=== PATIENT | female | born 1970 | race Caucasian/White ===

== ENCOUNTER 2019-09-17 15:50 | Outpatient (CLI) | payer OTHER, SELFPAY ==
--- NOTE | ~2019-09-17 | MM_ITS ---
EXAMINATION: MM screening ashvin BI w ashli HISTORY: Screening mammogram TECHNIQUE: Craniocaudal and mediolateral oblique 3-D tomosynthesis images were obtained and synthetic 2-D images were generated. CAD analysis was submitted and interpreted. COMPARISON: No prior mammogram is available for comparison at this institution. BREAST PARENCHYMAL COMPOSITION: The breasts are almost entirely fatty. FINDINGS: There is no evidence of suspicious mass, calcification, or architectural distortion to sugg est malignancy in either breast. There has been no suspicious interval change. IMPRESSION: 1. No mammographic evidence of malignancy. 2. Recommend routine screening mammography in one year. BI-RADS Category 1: Negative Reviewed, dictated and finalized at location A.
== END 2019-09-17 15:51 | disposition home or self-care (01) ==
LOC: ANHIMG 15:54
PROVIDERS: PCP Physician Assistant; Visit Provider Obstetrics & Gynecology
DX: Z12.31 Encounter for screening mammogram for malignant neoplasm of breast (principal)
CPT/HCPCS: 77063; 77067

== ENCOUNTER 2020-01-16 07:13 | Outpatient (CLI) | payer OTHER, SELFPAY ==
[2020-01-16 07:24] LABS: Hematocrit 41.3 % (35.0-49.0); Hemoglobin 13.9 g/dL (12.0-15.0); Mean Corpuscular HGB Conc 33.7 g/dL (32.0-36.0); Mean Corpuscular Hemoglobin 31.6 pg (27.0-31.0); Mean Corpuscular Volume 93.9 fL (78.0-102.0); Mean Platelet Volume 10.8 fl (9.2-11.8); Platelet Count Result 226 K/mm3 (150-420); Red Cell Distribution Width 12.4 % (11.6-14.4); White Blood Count 6.6 K/mm3 (4.8-10.8)
[2020-01-16 08:40] LABS: Alanine Aminotransferase 29 U/L (14-59); Albumin Level 3.9 g/dL (3.4-5.0); Alkaline Phosphatase 55 U/L (46-116); Anion Gap 11 mmol/L (8-16); Aspartate Amino Transferase 15 U/L (15-37); Bilirubin,Total 0.3 mg/dL (0.00-1.00); Blood Urea Nitrogen 11 mg/dL (7-18); Calcium 8.6 mg/dL (8.5-10.1); Carbon Dioxide 26 mmol/L (21-32); Chloride 105 mmol/L (98-108); Cholesterol 205 mg/dL (0-200); Estimated Glomerular Filt Rate > 60; Folic Acid 10.1 ng/mL (8.6->20); Glucose 91 mg/dL (70-99); HDL Direct 44 mg/dL (40-60); LDL Cholesterol Calculated 131 mg/dL (<130); Osmolality Calculated 293 mOsm/kg (285-295); Potassium 3.8 mmol/L (3.5-5.1); Sodium 142 mmol/L (136-145); Thyroid Stimulating Hormone 1.46 uIU/mL (0.36-3.74); Total Protein 6.8 g/dL (6.4-8.2); Triglycerides 151 mg/dL (0-150); Vitamin B12 371 pg/mL (193-986)
== END 2020-01-16 07:14 | disposition home or self-care (01) ==
PROVIDERS: PCP Physician Assistant; Visit Provider Physician Assistant
DX: Z00.00 Encounter for general adult medical examination without abnormal findings (principal)
CPT/HCPCS: 36415; 80053; 80061; 82607; 82746; 84443; 85027

== ENCOUNTER → 2020-04-07 10:15 | Outpatient (CLI) | payer OTHER, SELFPAY ==
[2020-04-07 19:41] LABS: SARS-CoV-2 RNA PCR Positive
== END ==
PROVIDERS: PCP Physician Assistant; Visit Provider Physician Assistant
DX: U07.1 COVID-19 (principal)
CPT/HCPCS: C9803; U0003; U0005

== ENCOUNTER 2020-08-20 08:55 | Outpatient (CLI) | payer OTHER, SELFPAY ==
[2020-08-20 09:33] LABS: Hematocrit 40.5 % (37.0-47.0); Hemoglobin 13.7 g/dL (12.0-15.0)
[2020-08-20 09:47] LABS: Albumin Level 4.5 g/dL (3.5-5.1); Estimated Glomerular Filt Rate > 60; Glucose 89 mg/dL (65-105)
[2020-08-20 09:50] LABS: Hemoglobin A1C 5.4 % (<5.7)
== END 2020-08-20 08:56 | disposition home or self-care (01) ==
LOC: ANHLAB 08:57
PROVIDERS: PCP Physician Assistant; Visit Provider Orthopaedic Surgery
DX: M16.12 Unilateral primary osteoarthritis, left hip (principal); Z01.818 Encounter for other preprocedural examination
CPT/HCPCS: 36415; 82040; 82565; 82947; 83036; 85014; 85018

== ENCOUNTER 2020-10-21 17:04 | Outpatient (CLI) | payer OTHER, SELFPAY ==
--- NOTE | ~2020-10-21 | MM_ITS ---
EXAMINATION: MM screening ashvin BI w ashli HISTORY: Screening TECHNIQUE: Craniocaudal and mediolateral oblique 3-D tomosynthesis images were obtained and synthetic 2-D images were generated. CAD analysis was submitted and interpreted. COMPARISON: Comparison to multiple prior studies sequentially, with oldest reviewed study dated 08/05. BREAST PARENCHYMAL COMPOSITION: There are scattered areas of fibroglandular density. FINDINGS: There is no evidence of suspicious mass, calcification, or architectural distortion to sugg est malignancy in either breast. There has been no suspicious interval change. IMPRESSION: 1. No mammographic evidence of malignancy. 2. Recommend routine screening mammography in one year. BI-RADS Category 1: Negative Reviewed, dictated and finalized at location A.
== END 2020-10-21 17:05 | disposition home or self-care (01) ==
LOC: ANHIMG 17:05
PROVIDERS: PCP Physician Assistant; Visit Provider Obstetrics & Gynecology
DX: Z12.31 Encounter for screening mammogram for malignant neoplasm of breast (principal)
CPT/HCPCS: 77063; 77067

== ENCOUNTER 2020-12-02 14:00 | Outpatient (CLI) | payer OTHER, SELFPAY ==
--- NOTE | 2020-12-02 14:52 | ECG_ITS ---
Measurements Intervals [place] Rate: 71 P: 49 SC: 171 QRS: -2 QRSD: 93 T: 30 QT: 405 QTc: 442 Interpretive Statements SINUS RHYTHM BASELINE ARTIFACT- II, III, AVF NORMAL ECG Electronically Signed On 12-02-2020 15:07:25 CDT by Leobardo Hazel D.O.
[2020-12-02 15:22] LABS: Basophils Absolute Auto 0.1 K/mm3 (0.0-0.1); Basophils Percent Auto 0.6 % (0.2-1.2); Eosinophils Absolute Auto 0.1 K/mm3 (0-0.3); Eosinophils Percent Auto 1.2 % (0-4.4); Hematocrit 43.5 % (37.0-47.0); Hemoglobin 14.5 g/dL (12.0-15.0); Immature Granulocyte Absolute 0.04 K/mm3 (0.00-0.031); Immature Granulocyte Percent A 0.5 % (0-0.5); Lymphocytes Absolute Auto 2.71 K/mm3 (0.9-3.2); Lymphocytes Percent Auto 32.9 % (18.3-44.2); Mean Corpuscular HGB Conc 33.3 g/dl (32-36); Mean Corpuscular Hemoglobin 31.9 pg (26-34); Mean Corpuscular Volume 95.6 fl (80-100); Mean Platelet Volume 10.9 fl (7.4-10.4); Monocytes Absolute Auto 0.6 K/mm3 (0.1-0.6); Monocytes Percent Auto 7.4 % (2.6-8.5); Neutrophils Absolute Auto 4.7 K/mm3 (1.3-6.7); Neutrophils Percent Auto 57.4 % (45.5-73.1); Platelet Count Result 258 k/mm3 (150-375); Red Blood Count 4.55 M/mm3 (4.2-5.4); Red Cell Distribution Width 12.7 % (11.5-14.5); White Blood Count 8.2 K/mm3 (4.5-10.0)
[2020-12-02 15:32] LABS: Estimated Glomerular Filt Rate > 60; Glucose 92 mg/dL (65-110)
[2020-12-02 15:52] LABS: Hemoglobin A1C 5.2 % (<5.7)
[2020-12-02 17:36] LABS: Urine Cotinine NEGATIVE
== END 2020-12-02 14:01 | disposition home or self-care (01) ==
LOC: ANHSURGERY 14:04
PROVIDERS: PCP Physician Assistant; Visit Provider Orthopaedic Surgery
DX: M16.12 Unilateral primary osteoarthritis, left hip (principal); Z01.818 Encounter for other preprocedural examination
CPT/HCPCS: 80307; 82040; 82565; 82947; 83036; 85025; 87081; 93005

== ENCOUNTER 2020-12-23 00:52 | Day surgery (SDC) | payer OTHER, SELFPAY ==
[2020-12-02 14:12] VITALS: BMI 32.3
[2020-12-02 14:52] VITALS: BP 140/83; PULSE 72; RESP 16; TEMP 37; O2SAT 100
[2020-12-23] VITALS (14 sets, daily range): BP systolic 107–142; BP diastolic 62–97; PULSE 63–95; RESP 13–20; TEMP 36.1–36.9; O2SAT 93–100
--- NOTE | ~2020-12-23 | XR_ITS ---
EXAMINATION: XR hip LT min 2V EXAM DATE: 12/23/2020 10:44 INDICATION: Postoperative left hip arthroplasty. TECHNIQUE: Portable frontal, crosstable lateral projections left hip obtained immediately following arthroplasty performed by orthopedic surgeon Oswaldo Booth MD. FINDINGS: Patient is status post left hip arthroplasty. The orthopedic hardware is in expected posi tion. There is small amount of subcutaneous gas, some soft tissue swelling. Correlate with proced ure note. IMPRESSION: Status post left hip hip arthroplasty. Reviewed, dictated and finalized at location A.
[2020-12-23] MEDS: ACETAMINOPHEN 500 MG TABLET 1000 MG PO ×4 (06:22→23:04)
[2020-12-23] MEDS: TRANEXAMIC ACID 1,000MG/ISO100 1,000 MG/100 ML BAG 200 MG IVPB (06:50)
--- NOTE | 2020-12-23 06:54 | WPDANESEPPF ---
Anes - Initial Pre Proc Eval Procedure: Operation Date: 12/23/20 07:30 Proposed Procedures p Left Total Hip Arthroplasty - Oswaldo Booth MD Date/Time: 12/23/20 06:54 Surgeon: Oswaldo Booth MD Pre Op Diagnosis: primary OA left hip Patient Data Age: 50 Gender: F Height: 1.66 m Weight: 89.2 kg Last Vital Signs Temp 36.8 C 12/23/20 06:51 Pulse 90 12/23/20 06:51 Resp 16 12/23/20 06:51 BP 138/88 12/23/20 06:51 Pulse Ox 99 12/23/20 06:51 Allergies Allergy/AdvReac Type Severity Reaction Status Date / Time No Known Allergies Allergy Verified 12/23/20 06:11 Home Medications Medication Instructions Recorded Confirmed Type fluoxetine 20 mg capsule 60 mg PO QAM cap 12/18/18 12/23/20 History amlodipine 5 mg PO QAM 12/02/20 12/23/20 History calcium carbonate-vitamin D3 1 cap PO BID 12/02/20 12/23/20 History [Calcium With Vitamin D3] ibuprofen 400 mg PO Q6H PRN 12/02/20 12/23/20 History Patient hx anesthesia problems: other (slow to awaken) Family hx anesthesia problems: none Results Review: All pre-operative results and documents have been reviewed as part of the pre-operative evaluation. COUNT INCLUDES THE [facility] Past Medical History Medical History Anxiety disorder, unspecified Basal cell carcinoma Essential (primary) hypertension Irritable bowel syndrome without diarrhea Osteoarthritis of left hip Family History Family History Father Family history of heart disease in male family member before age 55 Social History Social History Smoking status: Never smoker Second hand tobacco smoke exposure: No Additional smoking assessment comments: DENIES ANY FORM OF TOBACCO USE Alcohol intake: current Drinks per week: 2 Living arrangements: with family Spiritual care concerns: No Anes - Eval Final PreProcedure Day of Procedure 12/23/20 06:54 Patient weight: obese Heart: regular rate and rhythm Lungs: clear to auscultation Airway: Mallampati scale class II Neurological: alert and oriented Last oral intake: >/= 8 hours ASA classification: III Emergent: no Anesthetic plan: proceed Anesthesia type and monitoring: general ETT and standard monitoring Results Review: All pre-operative results and documents have been reviewed as part of the pre-operative evaluation. Informed Consent: The patient's anesthetic plan and its attendant risks and benefits were discussed with the patient/family/POA. Questions were solicited and answers provided to the satisfaction of the patient/family/POA.
[2020-12-23] MEDS: LACTATED RINGERS 1,000 ML 30 ML IV CONT ×2 (06:59→10:40)
--- NOTE | 2020-12-23 07:21 | WPDHPUPDATE1 ---
History and Physical Update Update Date/Time: 12/23/20 07:21 History and Physical has been reviewed, including an updated exam of the patient. There are NO changes in the patient's condition. Risks, benefits, and alternatives have been discussed and questions answered. Patient agrees to proceed with procedure.
[2020-12-23] MEDS: ceFAZolin 2 GM/D5W 50 ML 2 GM/50 ML BAG IVPB ×3 (07:47→23:04)
--- NOTE | 2020-12-23 10:15 | W.PM.PROC2 ---
Procedure Note - Detailed Date of Procedure 12/23/20 Pre-op Diagnosis Primary OA left hip Post-op Diagnosis same Procedure Performed Left Total Hip Arthroplasty Surgeon Oswaldo Booth MD Flame Cutter Nerissa Levin PA-C Anesthesia general Findings Small bone stature. Anteverted [place] acetabulum. Anatomic dual mobility placed anatomically. Excellent stability. Good bone quality. Description of Procedure The patient was given preoperative antibiotics. A general anesthetic was administered. The patient was carefully placed in the lateral decubitus position on the PEG board. The shoulders and hips were carefully positioned for component and leg length positioning reference. The hip was prepped and draped in the usual sterile fashion. A longitudinal incision was created over the posterior aspect of the greater trochanter. Careful dissection was brought down through the deep fascia with electrocautery. A minimally invasive optimized posterior approach to the hip was performed. The short external rotators and capsule were taken down in an L-shaped capsulotomy. The tissue was tagged for later repair using number 2 high strength suture. The femoral neck was measured and taken in situ. The femoral head was removed. The acetabulum was carefully exposed. The inferior capsule was released. The labrum was resected. The acetabulum was sequentially reamed to one over the intended cup size. The cup was impacted into position with excellent press-fit. Typical anatomic landmarks, including the bony contact points as well as the inferior transverse acetabular ligament were used to confirm cup positioning with preoperative templating. Attention was turned to the femur, which was carefully exposed. The hip was reamed and then broached sequentially. Excellent press-fit was obtained with the broach. The hip was trialed. Measurements were utilized, including the lesser trochanter as well as the center of the femoral head and the tip of the trochanter, and excellent assessment of the offset and leg lengths were confirmed. The real component was impacted into position. Trialing confirmed appropriate leg length and offset with soft tissue balancing as well apparent feel of the leg, both at the knee and the heel. Soft tissues were assessed using the the iliotibial band. Reduction of the posterior capsule and external rotators were also used as a secondary assessment. The hip was copiously irrigated with pulsatile lavage antibiotic solution periodically throughout the procedure. The real components were then assembled and reduced. The hip was stable throughout typical maneuvers, including extension, external rotation to 70 degrees, the position of sleep as well as flexion to 90 degrees with internal rotation past 45 degrees. The shake test confirmed stability without impingement. Osteophytes were removed as necessary. The short external rotators and capsule were repaired back to the posterior trochanter through drill holes. The deep fascia was repaired with running number 2 Quill suture, followed by 0 Stratafix suture and 2-0 Stratafix suture in the dermis. Steri-Strips were placed on the skin, followed by a sterile silver occlusive dressing. There were no complications. Meticulous hemostasis was maintained with the AquaMantys device. The patient was brought to the recovery room in stable condition. There were no complications. Implants The Accolade II hip stem, 127 degree size 4 , was utilized with excellent press-fit. The 46 mm ADM acetabular component was impacted with excellent press-fit stability. The +0 , 28 mm Biolox ceramic femoral head was utilized. Estimated Blood Loss 200 Drains No Packing No Pathology none sent Complications No immediate complications Condition stable Disposition PACU
--- NOTE | 2020-12-23 10:44 | SUR.PHASEI ---
1035 xrays of left hip done.
[2020-12-23] MEDS: fentaNYL CITRATE INJ (*CRX) 100 MCG/2 ML VIAL 25 MCG IV PUSH ×2 (11:07→11:11)
--- NOTE | 2020-12-23 11:31 | SUR.PHASEI ---
1130 dr torrez notified unable to palpate left dorsalis pedis pulse,able to dopple,strong posterior tibial pulse. left foot,warm,pink,mobile. dr torrez,here and observed foot.
--- NOTE | 2020-12-23 12:36 | PC.NURSE ---
This patient, Clemencia Verdugo, was admitted to 2 Medical Room 240-. Patient/family oriented to hospital policies and general routines including ID bracelet, bed and alarms, visiting hours, pain management, procedures, bathroom and other care routines, personal items, smoking policy, room service/diet, and visiting hours. Information on how to activate the Rapid Response Team has been discussed. Patient/Family are encouraged to report perceived risks to care and to ask questions if they do not understand what they are told or what they should do.
[2020-12-23 13:16] LABS: Hematocrit 38.5 % (37.0-47.0); Hemoglobin 12.6 g/dL (12.0-15.0)
[2020-12-23] MEDS: ONDANSETRON INJ 4 MG/2 ML VIAL IV PUSH (13:54)
[2020-12-23] MEDS: DOCUSATE SODIUM 100 MG CAPSULE PO (16:28)
[2020-12-23] MEDS: ASPIRIN 81 MG ENTERIC TABLET PO (16:28)
[2020-12-23] MEDS: oxyCODONE HCL (*CRX) 5 MG TAB IR PO (21:11)
[2020-12-23] MEDS: FAMOTIDINE 20 MG TABLET PO (21:16)
[2020-12-23] MEDS: oxyCODONE HCL (*CRX) 5 MG TAB IR 10 MG PO (23:03)
[2020-12-24] MEDS: oxyCODONE HCL (*CRX) 5 MG TAB IR 10 MG PO (02:45)
[2020-12-24 03:04] VITALS: BP 100/53; PULSE 90; RESP 17; TEMP 36.6; O2SAT 93
[2020-12-24 04:54] LABS: Basophils Percent Auto 0.2 % (0.2-1.2); Eosinophils Absolute Auto 0.1 K/mm3 (0-0.3); Eosinophils Percent Auto 0.4 % (0-4.4); Hematocrit 32.4 % (37.0-47.0); Hemoglobin 10.7 g/dL (12.0-15.0); Immature Granulocyte Absolute 0.06 K/mm3 (0.00-0.031); Immature Granulocyte Percent A 0.5 % (0-0.5); Lymphocytes Percent Auto 15.9 % (18.3-44.2); Mean Corpuscular Hemoglobin 31.6 pg (26-34); Mean Corpuscular Volume 95.6 fl (80-100); Mean Platelet Volume 11.3 fl (7.4-10.4); Monocytes Absolute Auto 1.1 K/mm3 (0.1-0.6); Monocytes Percent Auto 8.7 % (2.6-8.5); Neutrophils Absolute Auto 9.3 K/mm3 (1.3-6.7); Neutrophils Percent Auto 74.3 % (45.5-73.1); Platelet Count Result 177 k/mm3 (150-375); Red Blood Count 3.39 M/mm3 (4.2-5.4); Red Cell Distribution Width 12.6 % (11.5-14.5); White Blood Count 12.6 K/mm3 (4.5-10.0)
[2020-12-24 05:10] LABS: Anion Gap 7 mmol/L (8-16); Blood Urea Nitrogen 9 mg/dL (7-17); Calcium 8.7 mg/dL (8.4-10.2); Carbon Dioxide 26 mmol/L (22-30); Chloride 101 mmol/L (98-107); Estimated CRCL calculation 104 ml/min; Estimated Glomerular Filt Rate > 60; Glucose 110 mg/dL (65-110); Potassium 3.7 mmol/L (3.4-5.0); Sodium 134 mmol/L (137-145)
[2020-12-24] MEDS: ACETAMINOPHEN 500 MG TABLET 1000 MG PO ×2 (05:49→11:13)
[2020-12-24 05:53] VITALS: BP 103/55
[2020-12-24 10:00] VITALS: BP 110/60; PULSE 87; RESP 18; TEMP 37; O2SAT 93
[2020-12-24 10:02] VITALS: BP 114/67
[2020-12-24] MEDS: ASPIRIN 81 MG ENTERIC TABLET PO (10:19)
[2020-12-24] MEDS: DOCUSATE SODIUM 100 MG CAPSULE PO (10:19)
[2020-12-24] MEDS: amLODIPine BESYLATE 5 MG TABLET PO (10:19)
[2020-12-24] MEDS: ceFAZolin 2 GM/D5W 50 ML 2 GM/50 ML BAG IVPB (10:19)
[2020-12-24] MEDS: FAMOTIDINE 20 MG TABLET PO (10:19)
[2020-12-24] MEDS: FLUoxetine HCL 20 MG CAPSULE 60 MG PO (10:19)
[2020-12-24 14:00] VITALS: BP 118/59; PULSE 93; RESP 18; TEMP 37.2; O2SAT 91
[2020-12-24] MEDS: oxyCODONE HCL (*CRX) 5 MG TAB IR PO (14:25)
--- NOTE | 2020-12-24 16:12 | PM.DS ---
DS: Admitting Diagnosis Discharge Date 12/24/20 Admitting Diagnosis left hip arthritis. DS: Discharge Diagnosis Discharge Diagnosis (1) Osteoarthritis of left hip: Qualifiers: Osteoarthritis type: primary Qualified Code(s): M16.12 - Unilateral primary osteoarthritis, left hip Code(s): M16.12 - Unilateral primary osteoarthritis, left hip Status: Acute DS: Summary Hospital Course Reason for hospitalization: Total hip arthroplasty. Hospital Course: Tolerated surgery well. Progressed appropriately with therapy. Status at Discharge Functional status at discharge: uses cane/walker Overall status at discharge: patient is progressing back to baseline Time Spent with Patient Time attestation: Total time spent providing and/or coordinating discharge services: Exam Const: General: no acute distress Resp: Effort & Inspection: normal respiratory effort Skin: Other: Wound healing well. Mepilex dressing intact. No hematoma or drainage. Neuro: Motor exam (neuro): 5/5 motor strength present throughout Sensory Exam: normal sensation Psych: Mental Status: mental status grossly normal Speech and movement: Normal speech and movement present DS: Data Data Completed and Pending Labs on day of discharge: Labs from last 24 hours 12/24/20 12/24/20 04:24 04:24 WBC 12.6 H RBC 3.39 L Hgb 10.7 L Hct 32.4 L MCV 95.6 MCH 31.6 MCHC 33.0 RDW 12.6 Plt Count 177 MPV 11.3 H Immature Gran % (Auto) 0.5 Neut % (Auto) 74.3 H Lymph % (Auto) 15.9 L Schleicher % (Auto) 8.7 H Eos % (Auto) 0.4 Baso % (Auto) 0.2 Lymph # (Auto) 2.00 Schleicher # (Auto) 1.1 H Eos # (Auto) 0.1 Baso # (Auto) 0.0 Abs Immat Gran (auto) 0.06 H Absolute Neuts (auto) 9.3 H Absolute Nucleated RBC 0.0 Nucleated RBC % 0.0 Sodium 134 L Potassium 3.7 Chloride 101 Carbon Dioxide 26 Anion Gap 7 L BUN 9 Creatinine 0.60 L Estim Creat Clear Calc 104 Estimated GFR > 60 Glucose 110 Calcium 8.7 Discharge Plan Discharge Patient Disposition: Home, Self-Care Discharge Instructions: See instruction sheet. Patient Instructions: Oxycodone/Acetaminophen (By mouth), Precautions after Total Joint Replacement Surgery (DC), Joint Replacement Surgery (GEN) Stand Alone Forms: General Discharge Instructions Follow-up/Referrals: Oswaldo Booth MD [Physician] - Discharge Medications: New oxycodone-acetaminophen 5-325 mg tablet 1 - 2 tablet PO Q4-6H MDD 6 tablets PRN (Reason: pain) Qty: 30 RF: 0 Continued fluoxetine 20 mg capsule 60 mg PO QAM RF: 0 amlodipine 5 mg tablet 5 mg PO QAM RF: 0 calcium carbonate-vitamin D3 500 mg(1,250mg) -50 unit Capsule 1 cap PO BID RF: 0 ibuprofen 200 mg Tablet 400 mg PO Q6H PRN (Reason: Pain) RF: 0
== END 2020-12-24 14:50 | disposition home or self-care (01) ==
LOC: ANHSURGERY 05:57 → ANH2MED 12:24
PROVIDERS: Physician Assistant Surgical; PCP Physician Assistant; Visit Provider Orthopaedic Surgery
PROC: (CPT 27130; principal; 2020-12-23 07:30)
DX: M16.12 Unilateral primary osteoarthritis, left hip (principal); F41.9 Anxiety disorder, unspecified; I10 Essential (primary) hypertension; K58.0 Irritable bowel syndrome with diarrhea; Z85.828 Personal history of other malignant neoplasm of skin; E66.9 Obesity, unspecified; Z68.32 Body mass index [BMI] 32.0-32.9, adult; Z79.82 Long term (current) use of aspirin
CPT/HCPCS: 27130; 36415; 73502; 80048; 80307; 82040; 82565; 82947; 83036; 85014; 85018; 85025; 86850; 86900; 86901; 87081; 93005; 97110; 97116; 97161; 97165; 97535; A9270; C1776; J0171; J0690; J1885; J2250; J2270; J2370; J2405; J2704; J2710; J2795; J3010; J7120

== ENCOUNTER 2020-12-29 14:23 | Emergency (ER) | payer OTHER, SELFPAY ==
--- NOTE | ~2020-12-29 | XR_ITS ---
XR chest 2V 12/29/2020 14:56 Indication: Shortness of breath. Hypertension. Procedure: 2 view chest Comparison: No prior studies for comparison. Findings: Bibasilar infiltrates some of which have a linear appearance. Heart size normal. No signifi cant effusion, edema or pneumothorax. Impression: 1: Bibasilar infiltrates may represent atelectasis or developing pneumonia. Reviewed, dictated and finalized at location A. STANT TRACK COACH Impression: 1: Bibasilar infiltrates may represent atelectasis or developing pneumonia.
--- NOTE | ~2020-12-29 | CT_ITS ---
EXAMINATION: CTA chest PE protocol DATE: 12/29/2020 17:03 INDICATION: Shortness of breath TECHNIQUE: Computed tomography angiography (CTA) of the chest was performed with 100 mL Omnipaque-350 intravenous contrast timed to evaluate the pulmonary arteries. Coronal maximum intensity projection 3D-reconstructions were created by the technologist. The dose-length product (DLP) was 339.91 mGy-cm. Automated exposure control and iterative reconstruction technique were employed. COMPARISON: None. FINDINGS: The pulmonary arteries are well-opacified. No pulmonary embolism is identified. There is at electasis in the lower lobes, lingula, and right middle lobe. No pleural effusion or pneumothorax is identified. No pathologically enlarged thoracic lymph nodes are identified. The heart size is normal. There is mild thoracic spondylosis. IMPRESSION: 1. No pulmonary embolus. 2. Mild atelectasis of the lower lobes, lingula, and right middle lobe. Reviewed, dictated and finalized at location B. ENSING LEAD
[2020-12-29 14:31] VITALS: BP 153/95; PULSE 85; RESP 18; TEMP 37; O2SAT 99
--- NOTE | 2020-12-29 14:35 | ECG_ITS ---
Measurements Intervals [place] Rate: 82 P: 45 SC: 154 QRS: 8 QRSD: 102 T: 53 QT: 383 QTc: 449 Interpretive Statements SINUS RHYTHM NORMAL ECG Electronically Signed On 12-30-2020 8:47:45 CABLE FORMER by Leobardo Hazel D.O.
[2020-12-29 15:54] LABS: Basophils Absolute Auto 0.1 K/mm3 (0.0-0.1); Basophils Percent Auto 0.7 % (0.2-1.2); Eosinophils Absolute Auto 0.3 K/mm3 (0-0.3); Eosinophils Percent Auto 2.9 % (0-4.4); Hematocrit 36.1 % (37.0-47.0); Immature Granulocyte Absolute 0.43 K/mm3 (0.00-0.031); Immature Granulocyte Percent A 4.2 % (0-0.5); Lymphocytes Absolute Auto 2.52 K/mm3 (0.9-3.2); Lymphocytes Percent Auto 24.6 % (18.3-44.2); Mean Corpuscular HGB Conc 33.2 g/dl (32-36); Mean Corpuscular Hemoglobin 31.5 pg (26-34); Mean Corpuscular Volume 94.8 fl (80-100); Mean Platelet Volume 10.3 fl (7.4-10.4); Monocytes Percent Auto 9.5 % (2.6-8.5); Neutrophils Percent Auto 58.1 % (45.5-73.1); Nucleated Red Blood Cells Perc 0.2 % (0.0-0.2); Platelet Count Result 318 k/mm3 (150-375); Red Blood Count 3.81 M/mm3 (4.2-5.4); Red Cell Distribution Width 12.4 % (11.5-14.5); White Blood Count 10.3 K/mm3 (4.5-10.0)
[2020-12-29 16:14] LABS: Anion Gap 8 mmol/L (8-16); Blood Urea Nitrogen 12 mg/dL (7-17); Calcium 9.6 mg/dL (8.4-10.2); Carbon Dioxide 25 mmol/L (22-30); Chloride 107 mmol/L (98-107); Estimated CRCL calculation 103 ml/min; Estimated Glomerular Filt Rate > 60; Glucose 100 mg/dL (65-110); Potassium 3.9 mmol/L (3.4-5.0); Sodium 140 mmol/L (137-145)
[2020-12-29] MEDS: LACTATED RINGERS 1,000 ML 999 ML IV CONT (17:39)
--- NOTE | 2020-12-29 17:58 | ED.SOB ---
HPI - SOB/Dyspnea General Chief Complaint: Shortness of Breath/Dyspnea Stated Complaint: SOB- post op Time Seen by Provider: 12/29/20 15:54 Source: patient Mode of arrival: ambulatory Limitations: no limitations History of Present Illness HPI Narrative: 50-year-old female Here because of feeling short of breath and generally bad Patient had a hip replacement last went home on Sunday She says that basically since getting home she has felt generally poorly She first thought it was because her pain medications were causing side effects, which they were including hallucinations, but she is stopped taking them and still does not feel right In addition she complains of feeling short of breath for the last 2 or 3 days She does not have a fever or a cough She had one episode of fairly explosive diarrhea this afternoon, no blood in the stool No urinary symptoms Related Data Home Medications Medication Instructions Recorded Confirmed fluoxetine 20 mg capsule 60 mg PO QAM cap 12/18/18 12/23/20 amlodipine 5 mg PO QAM 12/02/20 12/23/20 calcium carbonate-vitamin D3 1 cap PO BID 12/02/20 12/23/20 ibuprofen 400 mg PO Q6H PRN 12/02/20 12/23/20 Allergies Allergy/AdvReac Type Severity Reaction Status Date / Time No Known Allergies Allergy Verified 12/23/20 12:38 Review of Systems Review of Systems: All systems reviewed & are unremarkable except as noted in HPI and below Constitutional: Constitutional: Reports no additional constitutional complaints, Denies chills, Reports fatigue, Denies fever(s), Denies headache(s) and Reports weakness Eyes: Eyes: Reports no additional eye complaints and Denies change in vision ENT: Denies headache(s) and Denies sore throat Cardiovascular: Cardiovascular: Denies chest pain and Denies dyspnea Respiratory: Respiratory: Denies cough, Reports dyspnea and Denies wheezing Gastrointestinal: Gastrointestinal: Denies abdominal pain, Reports diarrhea and Denies vomiting Genitourinary: Genitourinary: Denies urinary frequency and Denies dysuria Musculoskeletal: Musculoskeletal: Denies deformity, Denies arthralgias, Denies joint swelling and Denies numbness Integumentary/Breasts: Skin/Breast: Denies rash and Denies wounds Neurologic: Denies headache(s), Denies focal weakness and Denies numbness Psychiatric: Psychiatric: Reports no additional psychiatric complaints Endocrine: Endocrine: Reports no additional endocrine complaints Hematologic/Lymphatic: Hematologic/Lymphatic: Reports no additional hematologic/lymphatic complaints Allergic/Immunologic: Allergic/Immunologic: Reports no additional allergic/immunologic complaints [facility] Past Medical History Medical History Anxiety disorder, unspecified Basal cell carcinoma Essential (primary) hypertension Irritable bowel syndrome without diarrhea Osteoarthritis of left hip Family History Family History Father Family history of heart disease in male family member before age 55 Social History Social History Smoking status: Never smoker Second hand tobacco smoke exposure: No Additional smoking assessment comments: DENIES ANY FORM OF TOBACCO USE Alcohol intake: current Drinks per week: 2 Substance use: never Substance use type: does not use Spiritual care concerns: No Exam Const: General: cooperative, no acute distress and alert Orientation/consciousness: patient oriented x3 (alert) HENMT: Head: normal to inspection, normocephalic and atraumatic Ears: external ears normal General nose exam: no epistaxis Eyes: Conjunctivae: conjunctivae normal EOM: EOMs intact bilaterally Neck: Neck: normal visual inspection, no lymphadenopathy, supple and no JVD Resp: Effort & Inspection: normal respiratory effort and not labored Auscultation: clear to auscultat
[2020-12-29 19:34] VITALS: BP 163/79; PULSE 81; RESP 21; O2SAT 98
== END 2020-12-29 19:35 | disposition home or self-care (01) ==
PROVIDERS: Emergency Provider Emergency Medicine; PCP Physician Assistant
DX: R53.1 Weakness (principal); R19.7 Diarrhea, unspecified; J98.11 Atelectasis; F41.9 Anxiety disorder, unspecified; I10 Essential (primary) hypertension
CPT/HCPCS: 36415; 71046; 71275; 80048; 85025; 93005; 96360; 99284; J7120; Q9967

== ENCOUNTER 2020-12-30 07:19 | Outpatient (CLI) | payer OTHER, SELFPAY ==
--- NOTE | ~2020-12-30 | US_ITS ---
EXAMINATION: US venous doppler [facility] DATE: 12/30/2020 08:02 INDICATION: Left lower limb pain TECHNIQUE: Atkins scale images without and with compression and Doppler images of the left lower extrem ity veins were obtained. COMPARISON: None FINDINGS: The left common femoral vein, profunda femoral vein, femoral vein, popliteal vein, peroneal trunk, posterior tibial veins, and greater saphenous vein are patent. IMPRESSION: 1. Patent left lower extremity veins. No evidence of deep venous thrombosis. Reviewed, dictated and finalized at location B. 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
== END 2020-12-30 07:20 | disposition home or self-care (01) ==
PROVIDERS: PCP Physician Assistant; Referring Provider Emergency Medicine; Visit Provider Physician Assistant
DX: M79.89 Other specified soft tissue disorders (principal); M79.662 Pain in left lower leg
CPT/HCPCS: 93971

== ENCOUNTER 2021-02-01 07:25 | Outpatient (CLI) | payer OTHER, SELFPAY ==
[2021-02-01 07:40] LABS: Hematocrit 39.9 % (35.0-49.0); Mean Corpuscular HGB Conc 32.6 g/dL (32.0-36.0); Mean Corpuscular Volume 95.2 fL (78.0-102.0); Mean Platelet Volume 10.9 fl (9.2-11.8); Platelet Count Result 240 K/mm3 (150-420); Red Blood Count 4.19 M/mm3 (4.20-5.40); Red Cell Distribution Width 12.5 % (11.6-14.4); White Blood Count 6.5 K/mm3 (4.8-10.8)
[2021-02-01 09:10] LABS: Alanine Aminotransferase 30 U/L (14-59); Albumin Level 3.8 g/dL (3.4-5.0); Alkaline Phosphatase 65 U/L (46-116); Anion Gap 11 mmol/L (8-16); Aspartate Amino Transferase 15 U/L (15-37); Bilirubin,Total 0.5 mg/dL (0.00-1.00); Blood Urea Nitrogen 11 mg/dL (7-18); Calcium 8.7 mg/dL (8.5-10.1); Carbon Dioxide 27 mmol/L (21-32); Chloride 105 mmol/L (98-108); Cholesterol 203 mg/dL (0-200); Estimated Glomerular Filt Rate > 60; Folic Acid 7.2 ng/mL (8.6->20); Glucose 93 mg/dL (70-99); HDL Direct 52 mg/dL (40-60); LDL Cholesterol Calculated 124 mg/dL (<130); Osmolality Calculated 295 mOsm/kg (285-295); Potassium 3.8 mmol/L (3.5-5.1); Sodium 143 mmol/L (136-145); Thyroid Stimulating Hormone 1.18 uIU/mL (0.36-3.74); Total Protein 6.8 g/dL (6.4-8.2); Triglycerides 136 mg/dL (0-150); Vitamin B12 274 pg/mL (193-986)
== END 2021-02-01 07:26 | disposition home or self-care (01) ==
LOC: CHSLAB 07:27
PROVIDERS: PCP Physician Assistant; Visit Provider Physician Assistant
DX: Z00.00 Encounter for general adult medical examination without abnormal findings (principal)
CPT/HCPCS: 36415; 80053; 80061; 82607; 82746; 84443; 85027

== ENCOUNTER 2021-02-06 18:11 | Emergency (ER) | payer OTHER, SELFPAY ==
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
[2021-02-06 18:13] VITALS: BP 145/79; PULSE 95; RESP 18; TEMP 36.4; O2SAT 99
[2021-02-06 20:12] VITALS: BP 162/100; PULSE 96; RESP 18; O2SAT 98
[2021-02-06 22:46] VITALS: BP 151/96; PULSE 80; RESP 18; O2SAT 97
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
== END 2021-02-06 23:20 | disposition home or self-care (01) ==
PROVIDERS: Emergency Provider Emergency Medicine; PCP Physician Assistant
DX: S16.1XXA Strain of muscle, fascia and tendon at neck level, initial encounter (principal); F41.9 Anxiety disorder, unspecified; V89.0XXA Person injured in unspecified motor-vehicle accident, nontraffic, initial encounter
CPT/HCPCS: 72125; 99284

== ENCOUNTER 2021-12-27 08:11 | Outpatient (CLI) | payer OTHER, SELFPAY ==
--- NOTE | ~2021-12-27 | MM_ITS ---
EXAMINATION: MM screening ashvin BI w ashli HISTORY: Screening mammogram TECHNIQUE: Craniocaudal and mediolateral oblique 3-D tomosynthesis images were obtained and synthetic 2-D images were generated. CAD analysis was submitted and interpreted. COMPARISON: 10/21/2020, 09/17/2019, 03/12/2018 bilateral screening mammogram examinations BREAST PARENCHYMAL COMPOSITION: The breasts are almost entirely fatty. FINDINGS: There is no evidence of suspicious mass, calcification, or architectural distortion to sugg est malignancy in either breast. There has been no suspicious interval change. IMPRESSION: 1. No mammographic evidence of malignancy. 2. Recommend routine screening mammography in one year. BI-RADS Category 1: Negative Reviewed, dictated and finalized at location A. 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
== END 2021-12-27 08:12 | disposition home or self-care (01) ==
PROVIDERS: PCP Physician Assistant; Visit Provider Obstetrics & Gynecology
DX: Z12.31 Encounter for screening mammogram for malignant neoplasm of breast (principal)
CPT/HCPCS: 77063; 77067

== ENCOUNTER 2022-02-06 07:30 | Outpatient (CLI) | payer OTHER, SELFPAY ==
[2022-02-06 07:57] LABS: Hematocrit 40.3 % (35.0-49.0); Hemoglobin 13.5 g/dL (12.0-15.0); Mean Corpuscular HGB Conc 33.5 g/dL (32.0-36.0); Mean Corpuscular Hemoglobin 31.2 pg (27.0-31.0); Mean Corpuscular Volume 93.1 fL (78.0-102.0); Mean Platelet Volume 11.7 fl (9.2-11.8); Platelet Count Result 214 K/mm3 (150-420); Red Blood Count 4.33 M/mm3 (4.20-5.40); Red Cell Distribution Width 12.2 % (11.6-14.4); White Blood Count 8.1 K/mm3 (4.8-10.8)
[2022-02-06 08:43] LABS: Alanine Aminotransferase 39 U/L (14-59); Alkaline Phosphatase 53 U/L (46-116); Anion Gap 6 mmol/L (8-16); Aspartate Amino Transferase 22 U/L (15-37); Bilirubin,Total 0.5 mg/dL (0.00-1.00); Blood Urea Nitrogen 13 mg/dL (7-18); Calcium 8.6 mg/dL (8.5-10.1); Carbon Dioxide 31 mmol/L (21-32); Chloride 104 mmol/L (98-108); Cholesterol 191 mg/dL (0-200); Estimated Glomerular Filt Rate > 60; Glucose 99 mg/dL (70-99); HDL Direct 56 mg/dL (40-60); LDL Cholesterol Calculated 105 mg/dL (<130); Osmolality Calculated 292 mOsm/kg (285-295); Potassium 3.9 mmol/L (3.5-5.1); Sodium 141 mmol/L (136-145); Thyroid Stimulating Hormone 1.15 uIU/mL (0.36-3.74); Total Protein 6.9 g/dL (6.4-8.2); Triglycerides 148 mg/dL (0-150); Vitamin B12 613 pg/mL (193-986)
[2022-02-06 08:44] LABS: Folic Acid > 20.0 ng/mL (8.6->20)
== END 2022-02-06 07:31 | disposition home or self-care (01) ==
LOC: CHSLAB 07:31
PROVIDERS: PCP Physician Assistant; Visit Provider Physician Assistant
DX: Z00.00 Encounter for general adult medical examination without abnormal findings (principal)
CPT/HCPCS: 36415; 80053; 80061; 82607; 82746; 84443; 85027

== ENCOUNTER 2022-09-18 12:01 | Outpatient (CLI) | payer OTHER, SELFPAY ==
--- NOTE | ~2022-09-18 | US_ITS ---
EXAMINATION: US venous doppler LE RT DATE: 09/18/2022 12:59 INDICATION: Right lower limb pain and swelling TECHNIQUE: Grayscale ultrasound images without and with compression and Doppler ultrasound images of the right lower extremity veins were obtained. COMPARISON: None. FINDINGS: There is extensive noncompressible deep venous thrombosis including in the visualized portions of rig ht common femoral vein, profunda (deep) femoral vein, popliteal vein, peroneal trunk, posterior tibia l veins, peroneal veins and gastrocnemius vein. The right femoral vein and greater saphenous vein out flow appear to remain patent. IMPRESSION: 1. Extensive above and below the knee deep venous thrombosis in the right lower limb extending from the veins in the calf to the common femoral vein. Dr. Monge notified Dr. Janes Londono of these fi ndings at 1:08 PM. Reviewed, dictated and finalized at location B. IMPRESSION: 1. Extensive above and below the knee deep venous thrombosis in the right lowe r limb extending from the veins in the calf to the common femoral vein. Dr. Chet henry notified Dr. Janes Londono of these findings at 1:08 PM.
== END 2022-09-18 12:02 | disposition home or self-care (01) ==
PROVIDERS: PCP Physician Assistant; Visit Provider Physician Assistant
DX: M79.89 Other specified soft tissue disorders (principal); M79.661 Pain in right lower leg; I82.491 Acute embolism and thrombosis of other specified deep vein of right lower extremity
CPT/HCPCS: 93971

== ENCOUNTER 2022-09-22 10:48 | Observation (INO) | payer OTHER, SELFPAY ==
[2022-09-22] VITALS (41 sets, daily range): BP systolic 117–154; BP diastolic 70–97; PULSE 82–90; RESP 13–20; TEMP 36.5–36.7; O2SAT 93–100; BMI 31.4
--- NOTE | ~2022-09-22 | CT_ITS ---
EXAMINATION: CTA chest PE protocol DATE: 09/22/2022 13:38 INDICATION: Shortness of breath. TECHNIQUE: Computed tomography angiography (CTA) of the chest was performed with 100 mL Omnipaque-350 intravenous contrast timed to evaluate the pulmonary arteries. Coronal maximum intensity projection 3D-reconstructions were created by the technologist. Automated exposure control and iterative reconst ruction technique were employed. The dose-length product was 362.09 mGy-cm. COMPARISON: Chest CT 12/29/2020 FINDINGS: The lungs demonstrate mild atelectasis. No pleural effusion. The heart size is normal. No p ericardial effusion. There are acute pulmonary emboli in all lobes. There is severe cervical spondylo sis and moderate thoracic spondylosis. IMPRESSION: 1. Acute pulmonary emboli in all lobes. I called this result to Ceci Gregory. Reviewed, dictated and finalized at location B.
[2022-09-22 12:23] LABS: Basophils Absolute Auto 0.1 K/mm3 (0.0-0.1); Basophils Percent Auto 0.9 % (0.2-1.2); Eosinophils Absolute Auto 0.3 K/mm3 (0-0.3); Eosinophils Percent Auto 3.1 % (0-4.4); Hematocrit 41.8 % (37.0-47.0); Hemoglobin 13.6 g/dL (12.0-15.0); Immature Granulocyte Absolute 0.03 K/mm3 (0.00-0.031); Immature Granulocyte Percent A 0.4 % (0-0.5); Lymphocytes Absolute Auto 2.54 K/mm3 (0.9-3.2); Lymphocytes Percent Auto 31.4 % (18.3-44.2); Mean Corpuscular HGB Conc 32.5 g/dl (32-36); Mean Corpuscular Hemoglobin 30.4 pg (26-34); Mean Corpuscular Volume 93.3 fl (80-100); Mean Platelet Volume 10.6 fl (7.4-10.4); Monocytes Absolute Auto 0.6 K/mm3 (0.1-0.6); Monocytes Percent Auto 7.7 % (2.6-8.5); Neutrophils Absolute Auto 4.6 K/mm3 (1.3-6.7); Neutrophils Percent Auto 56.5 % (45.5-73.1); Platelet Count Result 326 k/mm3 (150-375); Red Blood Count 4.48 M/mm3 (4.2-5.4); Red Cell Distribution Width 12.2 % (11.5-14.5); White Blood Count 8.1 K/mm3 (4.5-10.0)
[2022-09-22 12:39] LABS: Alanine Aminotransferase 27 U/L (6-35); Albumin Level 4.7 g/dL (3.5-5.1); Alkaline Phosphatase 72 U/L (38-126); Anion Gap 11 mmol/L (8-16); Aspartate Amino Transferase 26 U/L (14-36); Bilirubin,Total 0.5 mg/dL (0.2-1.3); Blood Urea Nitrogen 10 mg/dL (7-17); Calcium 9.5 mg/dL (8.4-10.2); Carbon Dioxide 26 mmol/L (22-30); Chloride 103 mmol/L (98-107); Estimated CRCL calculation 85 ml/min; Estimated Glomerular Filt Rate > 60; Glucose 94 mg/dL (65-110); Potassium 3.9 mmol/L (3.4-5.0); Sodium 140 mmol/L (137-145)
[2022-09-22 12:43] LABS: INR 1.2; Prothrombin Time 15.9 Seconds (11.1-14.7)
[2022-09-22 12:44] LABS: Partial Thromboplastin Time 36.9 SECONDS (22.3-36.8)
--- NOTE | 2022-09-22 13:01 | ED.RECABL ---
HPI - Recheck/Abnormal Lab/Rx General Chief Complaint: Recheck/Abnormal Lab/Rx <Ceci Gregory PA-C - Last Filed: 09/22/22 14:49> Stated Complaint: Blood Clots <Ceci Gregory PA-C - Last Filed: 09/22/22 14:49> Time Seen by Provider: 09/22/22 11:44 <HERBERT Bradford Last Filed: 09/22/22 14:49> Source: patient <HERBERT Bradford Last Filed: 09/22/22 14:49> Mode of arrival: ambulatory <HERBERT Bradford Last Filed: 09/22/22 14:49> Limitations: no limitations <Ceci Gregory PA-C - Last Filed: 09/22/22 14:49> History of Present Illness HPI narrative: This is a 52 year old female that presents to the ER for right leg pain. Reports she was recently diagnosed with a DVT in the right leg. Reports swelling and pain to the area. Reports she has been taking blood thinners for this since Sunday. Reports feeling generally unwell and some shortness of breath over the last day or two. Denies fever, erythema, chest pain, vomiting, numbness or weakness. <Ceci Gregory PA-C - Last Filed: 09/22/22 14:49> Related Data Home Medications: Home Medications Medication Instructions Recorded Confirmed calcium carbonate-vitamin D3 500 1 cap PO BID 12/02/20 09/22/22 mg (1,250 mg)-50 unit capsule vitamin B12 500 mcg-folic acid 400 1 tablet PO DAILY 08/10/21 09/22/22 mcg tablet <Ceci Gregory PA-C - Last Filed: 09/22/22 14:49> Allergies/Adverse Reactions: Allergies Allergy/AdvReac Type Severity Reaction Status Date / Time No Known Allergies Allergy Verified 09/22/22 11:16 <HERBERT Bradford Last Filed: 09/22/22 14:49> Review of Systems Review of Systems: CONSTITUTIONAL: Denies fever CARDIOVASCULAR: Reports edema. Denies chest pain RESPIRATORY: Reports dyspnea. NEUROLOGIC: Deniess numbness, or weakness. <Ceci Gregory PA-C - Last Filed: 09/22/22 14:49> All systems reviewed & are unremarkable except as noted in HPI and below <Ceci Gregory PA-C - Last Filed: 09/22/22 14:49> PMFSH Past Medical History Medical History: Medical History Anxiety disorder, unspecified Basal cell carcinoma Essential (primary) hypertension Hypertension Irritable bowel syndrome without diarrhea Osteoarthritis of left hip <Ceci Gregory PA-C - Last Filed: 09/22/22 14:49> Family History Family History: Family History Father Family history of heart disease in male family member before age 55 <Ceci Gregory PA-C - Last Filed: 09/22/22 14:49> Social History Social History: Social History (Reviewed 09/18/22 @ 10:04 by Kyung Galindo [facility]) Smoking status: Never smoker Second hand tobacco smoke exposure: No Additional smoking assessment comments: DENIES ANY FORM OF TOBACCO USE Alcohol intake: current Drinks per week: 2 Substance use: never Substance use type: does not use Lack of Transportation: No Lack of Food: Never True Current Housing: I Have Housing Concerned About Future Housing: No Difficulty Paying Gas/Electric Bills: No Difficulty Paying for Meds: No Currently Unemployed: No Education: High School Diploma/GED Difficulty w/ Childcare or Family Care: No Living arrangements: with family Spiritual care concerns: No <HERBERT Bradford Last Filed: 09/22/22 14:49> Exam Narrative: GENERAL: Well-appearing, well-nourished, and in no acute distress. HEAD: Normocephalic, atraumatic. EYES: EOMI. CHEST: Clear to auscultation. No respiratory distress. No wheezes rales or rhonchi HEART: Regular rate and rhythm. No murmur heard. Normal peripheral pulses. EXTREMITIES: Normal range of motion. Mild edema to the right lower extremity. Normal DP pulses. Normal sensation. No erythema SKIN: Warm, dry, no rash. NEURO: No focal deficits. Alert and oriented x3. PSYCH: Normal mood and affect
[2022-09-22] MEDS: ENOXAPARIN 100 MG/ML SYRINGE 85 MG SUB-Q (15:21)
--- NOTE | 2022-09-22 17:12 | ADMGEN ---
This patient, Clemencia Verdugo, was admitted to Virtual Bed IMU-1. Patient/family oriented to hospital policies and general routines including ID bracelet, bed and alarms, visiting hours, pain management, procedures, bathroom and other care routines, personal items, smoking policy, room service/diet, and visiting hours. Information on how to activate the Rapid Response Team has been discussed. Patient/Family are encouraged to report perceived risks to care and to ask questions if they do not understand what they are told or what they should do.
--- NOTE | 2022-09-22 18:13 | PM.IMHP ---
H&P: HPI History of Present Illness Date/Time: 09/22/22 18:13 Chief Complaint: Blood clot Narrative: This is a 52 year old female patient came to the emergency room for right leg pain. The patient reportedly was diagnosed with a DVT in the right leg. Just swelling and pain in the area. The patient has started taking Xarelto on Sunday. And the patient has also been short of breath for the last day or 2. Venous Doppler on 09/18/2022 was read as.? Extensive above and below the knee deep venous thrombosis in the right lower limb extending from the veins in the calf to the common femoral vein. Dr. Monge notified Dr. Janes Londono of these findings at 1:08 PM. The patient was started on apixaban 5 mg b.i.d.. Today the patient's chest CTA was read as?Acute pulmonary emboli in all lobes. I called this result to Ceci Gregory. The patient was given a dose of subcu Lovenox. The patient has not had any recent surgery or any recent travel she has not had COVID. 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 She states that she tries to get up and move around when not sedated her does the whole time. The patient is being admitted to observation status on the date of service of 09/22/2022. Review of Systems Review of Systems: All systems reviewed & are unremarkable except as noted in HPI and below Constitutional: Constitutional: Reports as per HPI and Reports no additional constitutional complaints Eyes: Eyes: Reports as per HPI and Reports no additional eye complaints ENT: Reports system reviewed and no additional complaints, except as documented and Reports Normal hearing present Cardiovascular: Cardiovascular: Reports no additional cardiovascular complaints Respiratory: Respiratory: Reports no additional respiratory complaints and Reports no additional respiratory complaints Gastrointestinal: Gastrointestinal: Reports as per HPI and Reports no additional gastrointestinal complaints Musculoskeletal: Musculoskeletal: Reports no additional musculoskeletal complaints Integumentary/Breasts: Skin/Breast: Reports system reviewed and no additional complaints, except as docu and Reports as per HPI Neurologic: Reports system reviewed and no additional complaints, except as documented, Reports as per HPI and Reports Normal hearing present Psychiatric: Psychiatric: Reports no additional psychiatric complaints and Reports as per HPI Endocrine: Endocrine: Reports no additional endocrine complaints Hematologic/Lymphatic: Hematologic/Lymphatic: Reports no additional hematologic/lymphatic complaints Allergic/Immunologic: Allergic/Immunologic: Reports no additional allergic/immunologic complaints [facility] Past Medical History Medical History (Updated 09/22/22 @ 23:53 by Feli Bunn NP) Anxiety disorder, unspecified Basal cell carcinoma Essential (primary) hypertension Hypertension Irritable bowel syndrome without diarrhea Orthopedic aftercare Osteoarthritis of left hip URI, acute Surgical History Surgical History (Updated 09/22/22 @ 23:50 by Feli Bunn NP) H/O foot surgery History of hip surgery History of removal of pigmented skin lesion Family History Family History Father Family history of heart disease in male family member before age 55 Social History Social History (Updated 09/22/22 @ 23:51 by Feli Bunn NP) Social History: She is and lives with her . The patient works from home. She is a lifelong nonsmoker. She does not use any marijuana or illicit drugs. Her is the durable power civil attorney for healthcare. She has an occasional alcoholic beverage in she has 3 children. Code status full code Smoking status: Never smoker Second hand tobacco smoke exposure: No Additional smoking assessment comments: DENIES ANY FORM OF TOBACCO USE Alcohol intake: current Drinks per week: 2 Substance use: never Substance use type:
[2022-09-23] VITALS (14 sets, daily range): BP systolic 117–141; BP diastolic 73–81; PULSE 63–96; RESP 15–84; TEMP 36.4–37.2; O2SAT 16–100
--- NOTE | 2022-09-23 | ECHO_ITS ---
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 Summary 1. Complete two-dimensional, color flow and Doppler transthoracic echocardiogram is performed. 2. Normal left ventricular size and thickness with good contractility of all segments. Ejection fraction 55-60%. Normal diastolic function. 3. Normal right ventricular size and contractility. 4. Trivial mitral and tricuspid regurgitation. 5. No pulmonary hypertension, estimated pulmonary arterial systolic pressure is 27 mmHg. 6. Small atrial septal aneurysm noted. 7. Normal sinus rhythm. Left Ventricle Left ventricular chamber dimension is normal. Left ventricular systolic function is normal, estimated at 55-60%. There is no increased left ventricular wall thickness. Left ventricular septal wall motion is normal. The left ventricular diastolic function is normal. Right Ventricle Right ventricular chamber dimension is normal. Right ventricular systolic function is normal. Left Atria Left atrial chamber dimension is moderately enlarged. Right Atria Right atrial chamber dimension is normal. Aortic Valve The aortic valve is trileaflet. There is no aortic valve sclerosis. There is no aortic valve stenosis. There is no aortic valve regurgitation. Pulmonic Valve The pulmonic valve is normal. There is no pulmonic valve stenosis. There is no pulmonic regurgitation. Mitral Valve The mitral valve has normal leaflets. There is no mitral valve stenosis. There is trace mitral valve regurgitation. Tricuspid Valve The tricuspid valve leaflets are normal. There is no significant tricuspid valve stenosis. There is trace tricuspid valve regurgitation. No pulmonary hypertension, estimated pulmonary arterial systolic pressure is 27 mmHg. Pericardium/Pleural The pericardium appears normal. There is no pericardial effusion. Inferior Vena Cava Normal inferior vena cava with >50% collapse upon inspiration consistent with Empty right atrial pressure, 10 mmHg. Aorta The aortic root size at the sinus of Valsalva is normal. The prox ascending aorta size is normal. Left Ventricular Outflow Tract Name Value Normal LVOT 2D LVOT Diameter 2.1 cm LVOT Doppler LVOT Peak Gradient 3 mmHg LVOT Mean Gradient 1 mmHg LVOT VTI 19 cm LVOT VTI/AV VTI Ratio 0.7 LVOT Stroke Volume 67 ml LVOT CO 4.3 l/min LVOT CI 2.2 l/min/m2 Pulmonic Valve
[2022-09-23] MEDS: ENOXAPARIN 100 MG/ML SYRINGE 85 MG SUB-Q ×2 (04:07→14:57)
[2022-09-23] MEDS: HYDROcodone/acetaminophen (*CRX) 5-325 MG TABLET 1 TAB PO (04:08)
[2022-09-23 05:42] LABS: Basophils Absolute Auto 0.1 K/mm3 (0.0-0.1); Eosinophils Absolute Auto 0.3 K/mm3 (0-0.3); Eosinophils Percent Auto 3.8 % (0-4.4); Hematocrit 38.7 % (37.0-47.0); Hemoglobin 12.6 g/dL (12.0-15.0); Immature Granulocyte Absolute 0.03 K/mm3 (0.00-0.031); Immature Granulocyte Percent A 0.4 % (0-0.5); Lymphocytes Absolute Auto 2.28 K/mm3 (0.9-3.2); Lymphocytes Percent Auto 33.1 % (18.3-44.2); Mean Corpuscular HGB Conc 32.6 g/dl (32-36); Mean Corpuscular Hemoglobin 30.4 pg (26-34); Mean Corpuscular Volume 93.3 fl (80-100); Mean Platelet Volume 10.7 fl (7.4-10.4); Monocytes Absolute Auto 0.7 K/mm3 (0.1-0.6); Monocytes Percent Auto 9.4 % (2.6-8.5); Neutrophils Absolute Auto 3.6 K/mm3 (1.3-6.7); Neutrophils Percent Auto 52.3 % (45.5-73.1); Platelet Count Result 301 k/mm3 (150-375); Red Blood Count 4.15 M/mm3 (4.2-5.4); Red Cell Distribution Width 12.1 % (11.5-14.5); White Blood Count 6.9 K/mm3 (4.5-10.0)
[2022-09-23 05:54] LABS: Alanine Aminotransferase 23 U/L (6-35); Alkaline Phosphatase 61 U/L (38-126); Anion Gap 8 mmol/L (8-16); Aspartate Amino Transferase 23 U/L (14-36); Bilirubin,Total 0.5 mg/dL (0.2-1.3); Blood Urea Nitrogen 9 mg/dL (7-17); Carbon Dioxide 21 mmol/L (22-30); Chloride 104 mmol/L (98-107); Estimated CRCL calculation 85 ml/min; Estimated Glomerular Filt Rate > 60; Glucose 100 mg/dL (65-110); Magnesium 2.1 mg/dL (1.6-2.3); Potassium 3.7 mmol/L (3.4-5.0); Sodium 133 mmol/L (137-145)
[2022-09-23] MEDS: VITAMIN B CMPLX/VIT C/FOLIC AC 1 CAPSULE 1 CAP PO (09:27)
[2022-09-23] MEDS: LOSARTAN POTASSIUM 100 MG TABLET PO (09:27)
--- NOTE | 2022-09-23 09:33 | PM.IMPN ---
Progress Note: A&P Assessment and Plan (1) Pulmonary embolism: Qualifiers: Pulmonary embolism type: multiple subsegmental (without acute cor pulmonale) Qualified Code(s): I26.94 - Multiple subsegmental pulmonary emboli without acute cor pulmonale Code(s): I26.99 - Other pulmonary embolism without acute cor pulmonale Status: Acute Assessment and Plan: The patient was recently diagnosed with an extensive DVT to her right lower extremity up to the common femoral vein. She has also been short of breath with CTA showing multiple PEs in all lobes. She has unprovoked VTE. She was started on Eliquis but was underdosed per patient. She is now on Lovenox subQ therapeutic dose Q12H. Hematology consult greatly appreciated. Echo ordered. Check for SLE. (2) DVT (deep venous thrombosis): Code(s): I82.409 - Acute embolism and thrombosis of unspecified deep veins of unspecified lower extremity Status: Acute Assessment and Plan: On 09/18/2022 the patient had a venous Doppler showing an extensive above and below the knee deep venous thrombosis in the right lower limb extending from the veins in the calf to the common femoral vein. The PCP was notified and patient was started on Eliquis. The PCP note is not complete so unclear if the patient received loading Eliquis dosing (10mg Q12 x 7 days) but patient states she was only given 5mg bid. Right leg without edema. Continue Lovenox. Hematology consulted. Change back to Eliquis at discharge. (3) Essential (primary) hypertension: Code(s): I10 - Essential (primary) hypertension Status: Chronic Assessment and Plan: Patient's blood pressure was reviewed on Blood pressure remains well controlled. Will continue current medications. (4) Irritable bowel syndrome without diarrhea: Code(s): K58.9 - Irritable bowel syndrome without diarrhea Status: Chronic Assessment and Plan: Stable Subjective Date/time seen: 09/23/22 09:33 Interval history: 52yo female with HTN, anxiety and who was recently diagnosed with RLE DVT here for right leg pain and found to have PE. Patient was diagnosed with DVT on Sunday (09/18) was started on Eliquis 5 b.i.d.. Patient denies any recent prolonged plane rides or car rides. No personal history of cancer. No personal history of VTE. No miscarriages. She she mentions that she has been working from home over the past few months and has been exercising more awake has less stressed. She drinks plenty of liquids and denies excessive use of caffeine or alcohol. No COVID sx. She had her last mammogram in January 2022. She sees OBGYN yearly for pelvic exams. She has not had a colonoscopy since her 20s. She does use a Cologuard that has been negative. Her mother did have lupus. She presented due to crampy sharp pain to the right leg. This is better today. She has also been minimally short of breath recently with talking or with exertion. Exam Narrative: AF 97.6 128/81 78 16 98% ra Gen - NARD Chest - CTA bilaterally, nml RR CV - RRR S1/S2. Tele showing no significant dysrhythmias Abd - Soft, NT/ND, Positive BS Ext - No pedal edema Psych - Nml mood and affect Skin - Warm and dry Objective Data Vital Signs Vital Signs: Vital Signs - 24 hr 09/22/22 11:11 09/22/22 11:13 09/22/22 11:14 Temperature 98.0 F Pulse Rate 87 Respiratory Rate 18 Blood Pressure 148/94 H 148/94 H Pulse Oximetry 100 98 100 Oxygen Delivery Room Air 09/22/22 11:15 09/22/22 11:30 09/22/22 11:31 Temperature Pulse Rate Respiratory Rate Blood Pressure 136/83 Pulse Oximetry 99 99 97 Oxygen Delivery 09/22/22 11:45 09/22/22 12:00 09/22/22 12:01 Temperature Pulse Rate Respiratory Rate Blood Pressure 133/85 Pulse Oximetry 98 96 96 Oxygen Delivery 09/22/22 12:19 09/22/22 12:20 09/22/22 12:30 Temperature Pulse Rate Respiratory Rate
[2022-09-24] VITALS (7 sets, daily range): BP systolic 110–130; BP diastolic 71–83; PULSE 75–93; RESP 16–19; TEMP 36.3–37.4; O2SAT 95–100
[2022-09-24] MEDS: ENOXAPARIN 100 MG/ML SYRINGE 85 MG SUB-Q (03:15)
[2022-09-24] MEDS: LOSARTAN POTASSIUM 100 MG TABLET PO (09:10)
[2022-09-24] MEDS: VITAMIN B CMPLX/VIT C/FOLIC AC 1 CAPSULE 1 CAP PO (09:11)
--- NOTE | 2022-09-24 13:52 | PM.DS ---
DS: Admitting Diagnosis Discharge Date 09/24/22 Admitting Diagnosis pe DS: Discharge Diagnosis Discharge Diagnosis (1) Pulmonary embolism: Qualifiers: Pulmonary embolism type: multiple subsegmental (without acute cor pulmonale) Qualified Code(s): I26.94 - Multiple subsegmental pulmonary emboli without acute cor pulmonale Code(s): I26.99 - Other pulmonary embolism without acute cor pulmonale Status: Acute Assessment and Plan: The patient was recently diagnosed with an extensive DVT to her right lower extremity up to the common femoral vein. She has also been short of breath with CTA showing multiple PEs in all lobes. She has unprovoked VTE. She was started on Eliquis but was underdosed per patient. She is now on Lovenox subQ therapeutic dose Q12H. Hematology consult greatly appreciated after dc. Echo ordered. Check for SLE. (2) DVT (deep venous thrombosis): Code(s): I82.409 - Acute embolism and thrombosis of unspecified deep veins of unspecified lower extremity Status: Acute Assessment and Plan: On 09/18/2022 the patient had a venous Doppler showing an extensive above and below the knee deep venous thrombosis in the right lower limb extending from the veins in the calf to the common femoral vein. The PCP was notified and patient was started on Eliquis. The PCP note is not complete so unclear if the patient received loading Eliquis dosing (10mg Q12 x 7 days) but patient states she was only given 5mg bid. Right leg without edema. Continue Lovenox. Hematology consulted. Change back to Eliquis at discharge. (3) Essential (primary) hypertension: Code(s): I10 - Essential (primary) hypertension Status: Chronic Assessment and Plan: Patient's blood pressure was reviewed on Blood pressure remains well controlled. Will continue current medications. (4) Irritable bowel syndrome without diarrhea: Code(s): K58.9 - Irritable bowel syndrome without diarrhea Status: Chronic Assessment and Plan: Stable DS: Summary Hospital Course Hospital Course: Admitted for pulmonary embolism. Respiratory status is okay. Vital signs stable. Lovenox transitioned to Eliquis on discharge. Would recommend follow-up with Hematology on discharge. Otherwise patient is ambulating around her room without any issues at all she can be discharged Time Spent with Patient Time attestation: Total time spent providing and/or coordinating discharge services: Exam Narrative: AF 97.6 128/81 78 16 98% ra Gen - NARD Chest - CTA bilaterally, nml RR CV - RRR S1/S2. Tele showing no significant dysrhythmias Abd - Soft, NT/ND, Positive BS Ext - No pedal edema Psych - Nml mood and affect Skin - Warm and dry Discharge Plan Discharge Attending physician on discharge: Michael Quinteros Consulting providers: Walter Marino Discharging Clinician: Michael Quinteros Patient Disposition: Home, Self-Care Activity: as tolerated Diet: as tolerated Patient Instructions: Antibiotic Form, Apixaban (By mouth) Stand Alone Forms: General Discharge Information Follow-up/Referrals: Janes Londono, PA-C [Primary Care Provider] - Discharge Medications: New Eliquis 5 mg Tablet 10 mg PO Q12HR Qty: 28 0RF Eliquis 5 mg Tablet 5 mg PO Q12HR Qty: 60 0RF Rx Instructions: start after completing 10mg bid x 7 days Continued vitamin E64-attov acid 500-400 mcg tablet 1 tablet PO DAILY Rx Instructions: administer with a meal losartan 100 mg tablet 100 mg PO DAILY Qty: 90 3RF calcium carbonate-vitamin D3 500 mg(1,250mg) -50 unit Capsule 1 cap PO BID Discontinued Eliquis 5 mg tablet 5 mg PO BID Qty: 60 5RF Date of admission: 09/22/22 14:42 Primary Care Provider: Janes Londono Admitting Provider: Abdulaziz Diaz Attending physician on admission: Abdulaziz Diaz Condition: Guarded Prognosis
[2022-09-28 05:47] LABS: Hexagonal Phase Confirm Weak Positive (Negative); Lupus dRVVT Confirmation Negative (Negative)
[2022-09-28 06:22] LABS: Lupus dRVVT Screen 55 sec (<=45); PTT-LA Screen 54 sec (<=40)
[2022-09-29 18:42] LABS: Factor V (Leiden) Mutation NEGATIVE
[2022-10-01 00:48] LABS: Anti Cardio Antibody IgM 6.8 MPL-U/mL (<20.0); Anti Cardiolipin Antibody IgA <2.0 APL-U/mL (<20.0); Anti Cardiolipin Antibody IgG <2.0 GPL-U/mL (<20.0)
[2022-10-13 14:24] LABS: Lupus dRVVT Additional Testing Indicated
== END 2022-09-24 14:23 | disposition home or self-care (01) ==
LOC: ANHED 14:48 → ANHIMU 18:23
PROVIDERS: Internal Medicine; Nurse Practitioner; Admitting Provider Family Medicine; Emergency Provider Physician Assistant; PCP Physician Assistant; Visit Provider Chiropractor
DX: I26.94 Multiple subsegmental thrombotic pulmonary emboli without acute cor pulmonale (principal); I82.409 Acute embolism and thrombosis of unspecified deep veins of unspecified lower extremity; I25.3 Aneurysm of heart; I10 Essential (primary) hypertension; F41.9 Anxiety disorder, unspecified; K58.9 Irritable bowel syndrome, unspecified; M16.12 Unilateral primary osteoarthritis, left hip; F10.90 Alcohol use, unspecified, uncomplicated; Z86.718 Personal history of other venous thrombosis and embolism; Z79.01 Long term (current) use of anticoagulants; Z79.899 Other long term (current) drug therapy; Z82.49 Family history of ischemic heart disease and other diseases of the circulatory system
CPT/HCPCS: 36415; 71275; 80053; 81241; 81291; 83735; 84443; 85025; 85597; 85610; 85613; 85730; 86038; 86147; 93306; 96372; 99285; A9270; G0378; J1650; Q9967

== ENCOUNTER 2022-12-05 09:03 | Outpatient (CLI) | payer OTHER, SELFPAY ==
--- NOTE | ~2022-12-05 | US_ITS ---
US venous doppler LE RT DATE: 12/05/2022 10:07 INDICATION: Right leg pain and swelling. History of deep venous thrombosis. TECHNIQUE: Real-time and color flow imaging and Doppler analysis of the veins of the right lower extr emity COMPARISON: 09/18/2022 venous duplex examination of the right lower extremity FINDINGS: There is extensive thrombus of the right popliteal vein which is noncompressible. The right greater saphenous vein, common femoral vein, profunda femoral vein and femoral vein as well as the posterior tibial and peroneal veins are patent. IMPRESSION: Deep venous thrombosis of right popliteal vein; there is interval improvement of the more extensive deep venous thrombosis noted on 09/18/2022. Reviewed, dictated and finalized at Location A. Reviewed, dictated and finalized at location L. IMPRESSION: Deep venous thrombosis of right popliteal vein; there is interval i mprovement of the more extensive deep venous thrombosis noted on 09/18/2022.
[2022-12-05 11:23] LABS: D Dimer 0.34 ug/mL (<0.48)
== END 2022-12-05 09:04 | disposition home or self-care (01) ==
PROVIDERS: PCP Nurse Practitioner Adult Health; Visit Provider Internal Medicine Hematology & Oncology
DX: I82.431 Acute embolism and thrombosis of right popliteal vein (principal)
CPT/HCPCS: 36415; 85380; 93971

== ENCOUNTER 2022-12-29 07:38 | Outpatient (CLI) | payer OTHER, SELFPAY ==
--- NOTE | ~2022-12-29 | MM_ITS ---
EXAMINATION: MM screening ashvin BI w ashli HISTORY: Screening TECHNIQUE: Craniocaudal and mediolateral oblique 3-D tomosynthesis images were obtained and synthetic 2-D images were generated. CAD analysis was submitted and interpreted. COMPARISON: Comparison to multiple prior studies sequentially, with oldest reviewed study dated 03/01. BREAST PARENCHYMAL COMPOSITION: There are scattered areas of fibroglandular density. FINDINGS: There is no evidence of suspicious mass, calcification, or architectural distortion to sugg est malignancy in either breast. There has been no suspicious interval change. IMPRESSION: 1. No mammographic evidence of malignancy. 2. Recommend routine screening mammography in one year. BI-RADS Category 1: Negative Reviewed, dictated and finalized at location A. 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
== END 2022-12-29 07:39 | disposition home or self-care (01) ==
LOC: CHSIMG 07:40
PROVIDERS: PCP Nurse Practitioner Adult Health; Visit Provider Obstetrics & Gynecology
DX: Z12.31 Encounter for screening mammogram for malignant neoplasm of breast (principal)
CPT/HCPCS: 77063; 77067

== ENCOUNTER 2023-01-03 01:42 | Day surgery (SDC) | payer OTHER, SELFPAY ==
[2022-12-26 13:44] VITALS: BMI 30.8
--- NOTE | 2023-01-01 11:15 | SUR.PREOP ---
Patient called regarding upcoming procedure. Reviewed preop instructions, appointment times, and procedure prep.
[2023-01-03 11:09] VITALS: BP 117/71; PULSE 88; RESP 18; TEMP 36.8; O2SAT 100
[2023-01-03 11:26] VITALS: BMI 29.7
[2023-01-03] MEDS: LACTATED RINGERS 1,000 ML 150 ML IV CONT (11:39)
--- NOTE | 2023-01-03 11:54 | WPDANESEPPF ---
Anes - Initial Pre Proc Eval Procedure: Operation Date: 01/03/23 12:30 Proposed Procedures p Screening Colonoscopy - Lenny Raymundo MD Date/Time: 01/03/23 11:54 Surgeon: Lenny Raymundo MD Pre Op Diagnosis: neoplasm screening Patient Data Age: 52 Gender: F Height: 1.65 m Weight: 81.2 kg Last Vital Signs Temp 98.2 F 01/03/23 11:09 Pulse 88 01/03/23 11:09 Resp 18 01/03/23 11:09 BP 117/71 01/03/23 11:09 Pulse Ox 100 01/03/23 11:09 O2 Del Method Room Air 01/03/23 11:09 Allergies Allergy/AdvReac Type Severity Reaction Status Date / Time No Known Allergies Allergy Verified 12/26/22 13:44 Home Medications Medication Instructions Recorded Confirmed Type calcium carbonate-vitamin D3 500 1 cap PO BID 12/02/20 12/26/22 History mg (1,250 mg)-50 unit capsule losartan 100 mg tablet 100 mg PO DAILY #90 tabs 07/03/22 12/26/22 Rx apixaban 5 mg tablet (Eliquis) 5 mg PO Q12HR #60 tabs 09/24/22 12/26/22 Rx prednisone 5 mg tablet 5 - 15 mg PO DAILY PRN ARTHRITIS 12/26/22 12/26/22 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 [facility] Past Medical History Medical History (Updated 10/12/22 @ 14:20 by Diamante Tello APRN) Anxiety disorder, unspecified Basal cell carcinoma Essential (primary) hypertension Hypertension Irritable bowel syndrome without diarrhea Orthopedic aftercare Osteoarthritis of left hip URI, acute Surgical History Surgical History (Updated 09/22/22 @ 23:50 by Feli Bunn NP) H/O foot surgery History of hip surgery History of removal of pigmented skin lesion Family History Family History (Updated 10/12/22 @ 13:26 by Cynthia Tyson MA) Father Family history of heart disease in male family member before age 55 Mother Depression Heart disease Grandparent EtOH dependence Depression Heart disease Social History Social History (Updated 08/24/23 @ 13:24 by Cynthia Tyson MA) Social History: She is and lives with her . The patient works from home. She is a lifelong nonsmoker. She does not use any marijuana or illicit drugs. Her is the durable power corporate attorney for healthcare. She has an occasional alcoholic beverage in she has 3 children. Code status full code Smoking status: Never smoker Second hand tobacco smoke exposure: No Additional smoking assessment comments: DENIES ANY FORM OF TOBACCO USE Alcohol intake: current Alcohol use details: occasional beer Substance use: never Substance use type: does not use Lack of Transportation: No Lack of Food: Never True Current Housing: I Have Housing Concerned About Future Housing: No Difficulty Paying Gas/Electric Bills: No Difficulty Paying for Meds: No Currently Unemployed: No Education: High School Diploma/GED Difficulty w/ Childcare or Family Care: No Living arrangements: with family Occupation/Education: occupation 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[employer] Gender identity (if verbalized by the patient): Female Spiritual care concerns: No Agree to blood products: Yes Anes - Eval Final PreProcedure Day of Procedure 01/03/23 11:54 Patient weight: obese Heart: regular rate and rhythm Lungs: clear to auscultation Airway: Mallampati scale class II Neurological: alert and oriented Last oral intake: >/= 8 hours ASA classification: III Emergent: no Anesthetic plan: proceed Anesthesia type and monitoring: general GIVS and standard monitoring Results Review: All pre-operative results and documents have been reviewed as part of the pre-operative evaluation. Informed Consent: The patient's anesthetic plan and its attendant risks and benefits were discussed with the patient/family/POA. Questions w
--- NOTE | 2023-01-03 12:25 | PM.HPGS ---
History of Present Illness History of Present Illness Consent: Risks, benefits, and alternatives have been discussed and questions answered. Patient agrees to proceed with procedure. Chief complaint: neoplasm screening Narrative: Clemencia Verdugo is a 52 year old female here for screening colonoscopy Review of Systems Constitutional: Constitutional: Denies headache(s) and Denies weakness Eyes: Eyes: Denies blurry vision ENT: Reports Normal hearing present, Denies headache(s) and Denies neck pain Cardiovascular: Cardiovascular: Denies chest pain and Denies dyspnea Respiratory: Respiratory: Denies dyspnea Gastrointestinal: Gastrointestinal: Reports no additional gastrointestinal complaints Genitourinary: Genitourinary: Denies dysuria Musculoskeletal: Musculoskeletal: Denies neck pain Integumentary/Breasts: Skin/Breast: Denies dry skin Neurologic: Reports Normal hearing present, Denies headache(s) and Denies weakness Psychiatric: Psychiatric: Denies anxiety Endocrine: Endocrine: Denies change in body appearance Hematologic/Lymphatic: Hematologic/Lymphatic: Denies easy bleeding Allergic/Immunologic: Allergic/Immunologic: Denies urticaria [facility] Past Medical History Medical History (Updated 01/03/23 @ 12:39 by Lenny Raymundo MD) Anxiety disorder, unspecified Basal cell carcinoma Colon cancer screening Essential (primary) hypertension Hypertension Irritable bowel syndrome without diarrhea Orthopedic aftercare Osteoarthritis of left hip URI, acute Surgical History Surgical History (Updated 09/22/22 @ 23:50 by Feli Bunn NP) H/O foot surgery History of hip surgery History of removal of pigmented skin lesion Family History Family History (Updated 10/12/22 @ 13:26 by Cynthia Tyson MA) Father Family history of heart disease in male family member before age 55 Mother Depression Heart disease Grandparent EtOH dependence Depression Heart disease Social History Social History (Updated 10/12/22 @ 13:24 by Cynthia Tyson MA) Social History: She is and lives with her . The patient works from home. She is a lifelong nonsmoker. She does not use any marijuana or illicit drugs. Her is the durable power civil attorney for healthcare. She has an occasional alcoholic beverage in she has 3 children. Code status full code Smoking status: Never smoker Second hand tobacco smoke exposure: No Additional smoking assessment comments: DENIES ANY FORM OF TOBACCO USE Alcohol intake: current Alcohol use details: occasional beer Substance use: never Substance use type: does not use Lack of Transportation: No Lack of Food: Never True Current Housing: I Have Housing Concerned About Future Housing: No Difficulty Paying Gas/Electric Bills: No Difficulty Paying for Meds: No Currently Unemployed: No Education: High School Diploma/GED Difficulty w/ Childcare or Family Care: No Living arrangements: with family Occupation/Education: occupation 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[employer] Gender identity (if verbalized by the patient): Female Spiritual care concerns: No Agree to blood products: Yes Meds Home Medications and Allergies Home Medications Medication Instructions Recorded Confirmed Type calcium carbonate-vitamin D3 500 1 cap PO BID 12/02/20 12/26/22 History mg (1,250 mg)-50 unit capsule losartan 100 mg tablet 100 mg PO DAILY #90 tabs 07/03/22 12/26/22 Rx apixaban 5 mg tablet (Eliquis) 5 mg PO Q12HR #60 tabs 09/24/22 12/26/22 Rx prednisone 5 mg tablet 5 - 15 mg PO DAILY PRN ARTHRITIS 12/26/22 12/26/22 History 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
[2023-01-03 12:44] VITALS: BP 119/69; PULSE 81; RESP 22; O2SAT 100
[2023-01-03 12:54] VITALS: BP 115/72; PULSE 80; RESP 18; O2SAT 100
[2023-01-03 13:04] VITALS: BP 110/72; PULSE 77; RESP 20; O2SAT 100
== END 2023-01-03 13:21 | disposition home or self-care (01) ==
PROVIDERS: PCP Nurse Practitioner Adult Health; Visit Provider Internal Medicine Gastroenterology
PROC: 0DJD8ZZ Inspection of Lower Intestinal Tract, Via Natural or Artificial Opening Endoscopic (ICD-10-PCS; CPT 45378; principal; 2023-01-03 12:30)
DX: Z12.11 Encounter for screening for malignant neoplasm of colon (principal); D12.0 Benign neoplasm of cecum; K63.5 Polyp of colon; K57.30 Diverticulosis of large intestine without perforation or abscess without bleeding; K64.8 Other hemorrhoids; F41.9 Anxiety disorder, unspecified; I10 Essential (primary) hypertension; K58.9 Irritable bowel syndrome, unspecified; Z79.01 Long term (current) use of anticoagulants; Z85.828 Personal history of other malignant neoplasm of skin; Z82.49 Family history of ischemic heart disease and other diseases of the circulatory system; E66.9 Obesity, unspecified; Z68.29 Body mass index [BMI] 29.0-29.9, adult
CPT/HCPCS: 45385; 88305; J7120

== ENCOUNTER 2023-03-14 12:45 | Outpatient (CLI) | payer OTHER, SELFPAY ==
--- NOTE | ~2023-03-14 | US_ITS ---
EXAMINATION:US venous doppler LE RT INDICATION:Deep venous thrombosis. TECHNIQUE: Multiple grayscale, color flow and Doppler images of the right lower extremity deep venous systems were obtained and reviewed. COMPARISON:Ultrasound dated 12/05/2022 FINDINGS: The common femoral, superficial femoral veins demonstrate normal respiratory variation, aug mentation and compressibility. There is deep venous thrombosis of the left popliteal vein, possibly c hronic. Color flow is also seen within the posterior tibial, peroneal, greater saphenous and profunda veins. IMPRESSION: 1: Deep venous thrombosis of the left popliteal vein again seen, possibly chronic. Reviewed, dictated and finalized at location B. CE SECRETARY IMPRESSION: 1: Deep venous thrombosis of the left popliteal vein again seen, possibly chron ic.
== END 2023-03-14 12:46 | disposition home or self-care (01) ==
PROVIDERS: PCP Nurse Practitioner Adult Health; Visit Provider Internal Medicine Hematology & Oncology
DX: I82.432 Acute embolism and thrombosis of left popliteal vein (principal)
CPT/HCPCS: 93971

== ENCOUNTER 2023-04-17 10:55 | Outpatient (CLI) | payer OTHER, SELFPAY ==
--- NOTE | ~2023-04-17 | XR_ITS ---
PA, oblique, and lateral views of the left second finger Clinical history foreign body FINDINGS: No fracture or dislocation seen. Joint spaces are preserved. Soft tissues are unremarkable. No radiopaque foreign body seen. IMPRESSION: Unremarkable exam. No radiopaque foreign body. Reviewed, dictated and finalized at [facility]. L FITTER
[2023-04-17 18:36] LABS: Hematocrit 41.8 % (37.0-47.0); Hemoglobin 13.6 g/dL (12.0-15.0); Mean Corpuscular HGB Conc 32.5 g/dl (32-36); Mean Corpuscular Hemoglobin 31.3 pg (26-34); Mean Corpuscular Volume 96.1 fl (80-100); Mean Platelet Volume 12.3 fl (7.4-10.4); Platelet Count Result 193 k/mm3 (150-375); Red Blood Count 4.35 M/mm3 (4.2-5.4); Red Cell Distribution Width 13.6 % (11.5-14.5); White Blood Count 5.8 K/mm3 (4.5-10.0)
[2023-04-17 18:45] LABS: Alanine Aminotransferase 38 U/L (6-35); Albumin Level 4.5 g/dL (3.5-5.1); Alkaline Phosphatase 59 U/L (38-126); Anion Gap 5 mmol/L (8-16); Aspartate Amino Transferase 71 U/L (14-36); Bilirubin,Total 0.6 mg/dL (0.2-1.3); Blood Urea Nitrogen 12 mg/dL (7-17); Calcium 9.6 mg/dL (8.4-10.2); Carbon Dioxide 28 mmol/L (22-30); Chloride 106 mmol/L (98-107); Cholesterol 226 mg/dL (0-200); Estimated Glomerular Filt Rate > 60; Glucose 90 mg/dL (65-110); HDL Direct 42 mg/dL; Sodium 139 mmol/L (137-145); Triglycerides 231 mg/dL (<150)
[2023-04-17 19:03] LABS: LDL Cholesterol Direct 130 mg/dL
[2023-05-01 06:53] LABS: Lead, Blood <1.0 mcg/dL (<3.5)
[2023-05-04 14:55] LABS: Collection Sample Venous
== END 2023-04-17 10:56 | disposition home or self-care (01) ==
PROVIDERS: PCP Nurse Practitioner Adult Health; Visit Provider Nurse Practitioner Adult Health
DX: M79.646 Pain in unspecified finger(s) (principal); I10 Essential (primary) hypertension; Z77.011 Contact with and (suspected) exposure to lead
CPT/HCPCS: 36415; 73140; 80053; 80061; 83655; 84443; 85027

== ENCOUNTER 2023-05-10 12:25 | Outpatient (CLI) | payer OTHER, SELFPAY ==
--- NOTE | ~2023-05-10 | US_ITS ---
EXAMINATION: US soft tissue UE LT DATE: 05/10/2023 12:49 INDICATION: Left index finger mass. Assess for foreign body. TECHNIQUE: Multiple grayscale and Doppler ultrasound images of the left second digit at the region of concern were obtained. COMPARISON: None FINDINGS: There is approximately 1 mm rim of anechoic fluid surrounding a 2 mm linear echogenic structure which would be consistent with a foreign body at the region of concern. The foreign body is located 1.5 mm deep to the skin surface. IMPRESSION: 1. 2 mm foreign body within a likely tiny subcutaneous abscess at the region of concern. Reviewed, dictated and finalized at location A.
== END 2023-05-10 12:26 | disposition home or self-care (01) ==
LOC: CHSIMG 12:26
PROVIDERS: PCP Nurse Practitioner Adult Health; Visit Provider Plastic Surgery
DX: M79.646 Pain in unspecified finger(s) (principal); R22.32 Localized swelling, mass and lump, left upper limb; S60.459A Superficial foreign body of unspecified finger, initial encounter
CPT/HCPCS: 76882

== ENCOUNTER 2023-06-07 06:21 | Day surgery (SDC) | payer OTHER, SELFPAY ==
[2023-05-21 14:59] VITALS: BMI 31.5
--- NOTE | 2023-06-07 07:05 | WPDHPUPDATE1 ---
History and Physical Update Update Date/Time: 06/07/23 07:05 Patient seen and examined in pre-operative holding area. No interval change in medical history or symptoms. Patient recalls previous discussion of benefits and alternatives to procedure. Continues to desire to proceed with excision left index finger mass . Reviewed procedure, post-op expectations and risks including but not limited to bleeding, infection, injury to tendon/nerve/vessel, decreased hand function, stiffness, RSD, no change or worsening of symptoms, recurrence. I discussed the possible use of assistants and their participation in the case. Patient stated understanding and signed the consent form wishing to proceed.
--- NOTE | 2023-06-07 07:06 | W.PM.PROC2 ---
Procedure Note - Detailed Date of Procedure 06/07/23 Pre-op Diagnosis Localized Swelling, Mass and Lump Left Upper Limb Post-op Diagnosis Same Procedure Performed left index finger mass excision Surgeon Anjali Ring MD Anesthesia MAC Description of Procedure INFORMED CONSENT: The patient was seen and examined and marked in the pre-op area.? The patient signed the consent form. PROCEDURE IN DETAIL:The patient taken back to OR on the stretcher in supine position. Time out performed with anesthesia, surgeon and staff agreeing on patient's name site and surgery to be performed SCDs were placed on the lower extremities and inflated. A tourniquet was placed on {left} upper extremity and antibiotics given IV After anesthesia administered sedation I injected {4}cc 1%lido and 0.5% marcaine plain for digital block in the palm The?{left upper extremity}?was prepped and draped in sterile fashion the??{left upper extremity} was? exsanguinated with Esmarch bandage and tourniquet inflated to 250mmHg I proceeded with making an oblique incision over the left index finger mass just distal to the PIP joint. This was done through skin and dermis with a 15 blade scalpel. Littler scissors were used to spread through the subcutaneous tissue. The mass was identified and proceeded with circumferential dissection of this mass from the deep subcutaneous tissue abutting the neurovascular bundle and flexor tendon sheath. The ulnar neurovascualr bundle was identified and protected throughout the procedure. A small amount of pigmentation from the mass involved the a3 padmini and small section of the padmini was resected to remove the discoloration. After all visible mass was excise I irrigated with normal saline. Skin was closed with 4-0 chromic. A dressing of xeroform, 4x4, and tube gauze after the tourniquet was let down noting the hand was warm and well perfused. The patient was then awaken from anesthesia and transferred to the recovery room in stable condition.? Complications - none EBL- 0cc Disposition - home in stable conditions Denise Jacinto PA-C was essential for positioning, retraction, closure and dressing placement [facility] Billing Surgery - Charge Forward: Surgery Billing ([id number] for denise)
[2023-06-07 07:13] VITALS: BP 117/89; PULSE 82; RESP 16; TEMP 37.3; O2SAT 100
--- NOTE | 2023-06-07 07:32 | WPDANESEPPF ---
Anes - Initial Pre Proc Eval Procedure: Operation Date: 06/07/23 08:30 Proposed Procedures p Excision Mass Left Index Finger - Anjali Ring MD Date/Time: 06/07/23 07:32 Surgeon: Anjali Ring MD Pre Op Diagnosis: Localized Swelling, Mass and Lump Left Upper Limb Patient Data Age: 53 Gender: F Height: 1.65 m Weight: 86.05 kg Last Vital Signs Temp 37.3 C 06/07/23 07:13 Pulse 82 06/07/23 07:13 Resp 16 06/07/23 07:13 BP 117/89 06/07/23 07:13 Pulse Ox 100 06/07/23 07:13 O2 Del Method Room Air 06/07/23 07:13 Allergies Allergy/AdvReac Type Severity Reaction Status Date / Time No Known Allergies Allergy Verified 06/07/23 07:10 Home Medications Medication Instructions Recorded Confirmed Type calcium carbonate-vitamin D3 500 1 cap PO BID 12/02/20 06/07/23 History mg (1,250 mg)-50 unit capsule losartan 100 mg tablet 100 mg PO DAILY #90 tabs 07/03/22 06/07/23 Rx apixaban 5 mg tablet (Eliquis) 5 mg PO Q12HR #60 tabs 09/24/22 06/07/23 Rx prednisone 5 mg tablet 5 - 15 mg PO DAILY PRN ARTHRITIS 12/26/22 06/07/23 History FLARE UPS bupropion HCl 150 mg 24 hr tablet, 150 mg PO QAM #30 tabs 05/21/23 06/07/23 Rx extended release multivitamin with minerals-folic 1 tablet PO DAILY 05/21/23 06/07/23 History acid 0.4 mg tablet tramadol 50 mg tablet 50 mg PO Q6H PRN pain #8 tabs 06/07/23 Rx Patient hx anesthesia problems: other (slow to awaken) Family hx anesthesia problems: post op nausea/vomiting Results Review: All pre-operative results and documents have been reviewed as part of the pre-operative evaluation. [facility] Past Medical History Medical History Anxiety disorder, unspecified Basal cell carcinoma Colon cancer screening Essential (primary) hypertension Hypertension Irritable bowel syndrome without diarrhea Orthopedic aftercare Osteoarthritis of left hip URI, acute Surgical History Surgical History H/O foot surgery History of hip surgery History of removal of pigmented skin lesion Family History Family History Father Family history of heart disease in male family member before age 55 Mother Depression Heart disease Grandparent EtOH dependence Depression Heart disease Social History Social History Social History: She is and lives with her . The patient works from home. She is a lifelong nonsmoker. She does not use any marijuana or illicit drugs. Her is the durable power drawbench operator helper for healthcare. She has an occasional alcoholic beverage in she has 3 children. Code status full code Smoking status: Never smoker Second hand tobacco smoke exposure: Yes Additional smoking assessment comments: DENIES ANY FORM OF TOBACCO USE Alcohol intake: current Alcohol use details: rarely Substance use: never Substance use type: does not use Do You Feel Safe in your Home?: Yes Lack of Transportation: No Lack of Food: Never True Current Housing: I Have Housing Concerned About Future Housing: No Difficulty Paying Gas/Electric Bills: No Difficulty Paying for Meds: No Currently Unemployed: No Education: High School Diploma/GED Difficulty w/ Childcare or Family Care: No Living arrangements: with family Occupation/Education: occupation 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
[2023-06-07] MEDS: LACTATED RINGERS 1,000 ML 30 ML IV CONT (07:34)
[2023-06-07] MEDS: ceFAZolin SODIUM 2 GM/20 ML SW SYRINGE IV PUSH (08:21)
[2023-06-07] MEDS: LIDOCAINE HCL 1% LOCAL INJ 20 ML VIAL INFILTRATE (08:27)
[2023-06-07] MEDS: BUPivacaine HCL 0.5% 10 ML AMP INFILTRATE (08:27)
[2023-06-07 08:47] VITALS: BP 111/74; PULSE 76; RESP 18; O2SAT 96
[2023-06-07 08:57] VITALS: BP 120/79; PULSE 65; RESP 14; O2SAT 99
--- NOTE | 2023-06-07 09:03 | WPDANESPN ---
Anes - Prog Note Post-Op Date/Time: 06/07/23 09:03 Cardiovascular status: normal Respiratory status: normal Airway patency: baseline Mental status: baseline Post-Op hydration status: normal Vital Signs: Last Vital Signs Temp 37.3 C 06/07/23 07:13 Pulse 65 06/07/23 08:57 Resp 14 06/07/23 08:57 BP 120/79 06/07/23 08:57 Pulse Ox 99 06/07/23 08:57 O2 Del Method Room Air 06/07/23 08:57 Pain Score (VAS): 0 I/O: Intake & Output 06/06/23 06/07/23 06/07/23 23:59 07:59 15:59 Intake Total 300 Balance 300 Patient Feedback: Patient satisfied with anesthetic care.
[2023-06-07 09:07] VITALS: BP 128/82; PULSE 63; RESP 14; O2SAT 99
[2023-06-07 09:17] VITALS: BP 123/82; PULSE 70; RESP 14; O2SAT 98
== END 2023-06-07 09:33 | disposition home or self-care (01) ==
PROVIDERS: PCP Nurse Practitioner Adult Health; Visit Provider Plastic Surgery
PROC: (CPT 26115; principal; 2023-06-07 08:30)
DX: R22.32 Localized swelling, mass and lump, left upper limb (principal)
CPT/HCPCS: 26115

== ENCOUNTER 2023-06-07 07:00 | Outpatient (NON) | payer OTHER, SELFPAY | END 2023-06-07 07:01 | disposition home or self-care (01) | PROVIDERS: PCP Nurse Practitioner Adult Health; Visit Provider Plastic Surgery | DX: R22.32 Localized swelling, mass and lump, left upper limb (principal) | CPT/HCPCS: 88304 ==

== ENCOUNTER 2023-06-11 09:48 | Outpatient (CLI) | payer OTHER, SELFPAY ==
--- NOTE | ~2023-06-11 | US_ITS ---
EXAMINATION:US venous doppler LE RT INDICATION:History of DVT. Patient on blood thinners. TECHNIQUE: Multiple grayscale, color flow and Doppler images of the right lower extremity deep venous systems were obtained and reviewed. COMPARISON:Ultrasound dated 03/14/2023 FINDINGS: The common femoral, superficial femoral veins demonstrate normal respiratory variation, aug mentation and compressibility. There is chronic thrombosis of the right popliteal vein. Color flow is also seen within the posterior tibial, peroneal, greater saphenous and profunda veins. IMPRESSION: 1: Chronic deep venous thrombosis of the right popliteal vein. Reviewed, dictated and finalized at location B.
== END 2023-06-11 09:49 | disposition home or self-care (01) ==
PROVIDERS: PCP Nurse Practitioner Adult Health; Visit Provider Internal Medicine Hematology & Oncology
DX: I82.4Z1 Acute embolism and thrombosis of unspecified deep veins of right distal lower extremity (principal)
CPT/HCPCS: 93971

== ENCOUNTER 2023-10-16 10:40 | Outpatient (CLI) | payer OTHER, SELFPAY ==
[2023-10-16 19:41] LABS: Alanine Aminotransferase 33 U/L (6-35); Albumin Level 4.5 g/dL (3.5-5.1); Alkaline Phosphatase 58 U/L (38-126); Anion Gap 9 mmol/L (4-12); Aspartate Amino Transferase 57 U/L (14-36); Bilirubin,Total 0.7 mg/dL (0.2-1.3); Blood Urea Nitrogen 14 mg/dL (7-17); Calcium 9.7 mg/dL (8.4-10.2); Carbon Dioxide 28 mmol/L (22-30); Chloride 102 mmol/L (98-107); Cholesterol 244 mg/dL (0-200); Estimated Glomerular Filt Rate > 60; Glucose 83 mg/dL (65-110); HDL Direct 44 mg/dL; Magnesium 2.2 mg/dL (1.6-2.3); Potassium 4.1 mmol/L (3.4-5.0); Sodium 139 mmol/L (137-145); Triglycerides 292 mg/dL (<150)
[2023-10-16 19:52] LABS: LDL Cholesterol Direct 140 mg/dL
== END 2023-10-16 10:41 | disposition home or self-care (01) ==
LOC: ANHBWCLAB 10:41
PROVIDERS: PCP Nurse Practitioner Adult Health; Visit Provider Nurse Practitioner Adult Health
DX: I10 Essential (primary) hypertension (principal)
CPT/HCPCS: 36415; 80053; 80061; 83735; 84443

== ENCOUNTER 2023-10-18 10:42 | Outpatient (CLI) | payer OTHER, SELFPAY ==
--- NOTE | ~2023-10-18 | US_ITS ---
EXAMINATION:US venous doppler LE RT INDICATION:DVT follow-up. TECHNIQUE: Multiple grayscale, color flow and Doppler images of the right lower extremity deep venous systems were obtained and reviewed. COMPARISON:Ultrasound dated 06/11/2023 FINDINGS: The common femoral, superficial femoral veins demonstrate normal respiratory variation, aug mentation and compressibility. There is chronic deep venous thrombosis of the right popliteal vein. C olor flow is also seen within the posterior tibial, peroneal, greater saphenous and profunda veins. IMPRESSION: 1: Chronic deep venous thrombosis of the right popliteal vein. Reviewed, dictated and finalized at location B.
== END 2023-10-18 10:43 | disposition home or self-care (01) ==
PROVIDERS: PCP Nurse Practitioner Adult Health; Visit Provider Internal Medicine Hematology & Oncology
DX: I82.531 Chronic embolism and thrombosis of right popliteal vein (principal)
CPT/HCPCS: 93971

== ENCOUNTER 2024-01-04 07:29 | Outpatient (CLI) | payer OTHER, SELFPAY ==
--- NOTE | ~2024-01-04 | MM_ITS ---
EXAMINATION: MM screening ashvin BI w ashli HISTORY: Screening mammogram TECHNIQUE: Craniocaudal and mediolateral oblique 3-D tomosynthesis images were obtained and synthetic 2-D images were generated. CAD analysis was submitted and interpreted. COMPARISON: 12/29/2022, 12/27/2021, 10/21/2020 BREAST PARENCHYMAL COMPOSITION:Not Dense. The breasts are almost entirely fatty FINDINGS: No suspicious mass, calcification, or architectural distortion are identified in either doe ast to suggest malignancy. There has been no suspicious interval change. IMPRESSION: No mammographic evidence of malignancy. Recommend routine screening mammography in one year. BI-RADS Category 1: Negative Reviewed, dictated and finalized at location . MAKER
== END 2024-01-04 07:30 | disposition home or self-care (01) ==
LOC: CHSIMG 07:29
PROVIDERS: PCP Nurse Practitioner Adult Health; Visit Provider Obstetrics & Gynecology
DX: Z12.31 Encounter for screening mammogram for malignant neoplasm of breast (principal)
CPT/HCPCS: 77063; 77067

== ENCOUNTER 2024-04-17 07:54 | Outpatient (CLI) | payer OTHER, SELFPAY ==
[2024-04-17 20:37] LABS: Alanine Aminotransferase 34 U/L (6-35); Albumin Level 4.5 g/dL (3.5-5.1); Alkaline Phosphatase 59 U/L (38-126); Anion Gap 8 mmol/L (4-12); Aspartate Amino Transferase 38 U/L (14-36); Bilirubin,Total 0.7 mg/dL (0.2-1.3); Blood Urea Nitrogen 18 mg/dL (7-17); Calcium 10.1 mg/dL (8.4-10.2); Carbon Dioxide 29 mmol/L (22-30); Chloride 104 mmol/L (98-107); Cholesterol 227 mg/dL (0-200); Estimated Glomerular Filt Rate > 60; Glucose 88 mg/dL (65-110); HDL Direct 48 mg/dL; Potassium 4.3 mmol/L (3.4-5.0); Sodium 141 mmol/L (137-145); Triglycerides 168 mg/dL (<150)
[2024-04-17 20:48] LABS: LDL Cholesterol Direct 128 mg/dL
[2024-04-21 12:29] LABS: Homocysteine 8.9 umol/L (<10.4)
== END 2024-04-17 07:55 | disposition home or self-care (01) ==
LOC: ANHBWCLAB 07:55
PROVIDERS: PCP Nurse Practitioner Adult Health; Visit Provider Nurse Practitioner Adult Health
DX: I10 Essential (primary) hypertension (principal); Z15.89 Genetic susceptibility to other disease
CPT/HCPCS: 36415; 80053; 80061; 83090

== ENCOUNTER 2024-04-24 11:05 | Outpatient (CLI) | payer OTHER, SELFPAY ==
[2024-04-24 11:18] LABS: Basophils Percent Auto 0.6 % (0.2-1.2); Eosinophils Absolute Auto 0.1 K/mm3 (0-0.3); Hematocrit 40.6 % (37.0-47.0); Hemoglobin 13.6 g/dL (12.0-15.0); Immature Granulocyte Absolute 0.02 K/mm3 (0.00-0.031); Immature Granulocyte Percent A 0.3 % (0-0.5); Lymphocytes Absolute Auto 2.61 K/mm3 (0.9-3.2); Lymphocytes Percent Auto 39.5 % (18.3-44.2); Mean Corpuscular HGB Conc 33.5 g/dl (32-36); Mean Corpuscular Volume 92.5 fl (80-100); Monocytes Absolute Auto 0.6 K/mm3 (0.1-0.6); Monocytes Percent Auto 8.8 % (2.6-8.5); Neutrophils Absolute Auto 3.2 K/mm3 (1.3-6.7); Neutrophils Percent Auto 48.8 % (45.5-73.1); Platelet Count Result 226 k/mm3 (150-375); Red Blood Count 4.39 M/mm3 (4.2-5.4); Red Cell Distribution Width 12.6 % (11.5-14.5); White Blood Count 6.6 K/mm3 (4.5-10.0)
[2024-04-24 11:21] LABS: Blood Urea Nitrogen 17 mg/dL (8-26); Carbon Dioxide 27 mmol/L (22-30); Chloride 104 mmol/L (98-109); Estimated Glomerular Filt Rate 51; Glucose 93 mg/dL (70-105); Ionized Calcium (POC) 1.23 mmol/L (1.11-1.31); Sodium 141 mmol/L (138-146)
--- OUTSIDE RECORDS SUMMARY | 2024-04-24 12:46 | XMS_ITS | Clinical Summary ---
Author Organization [facility] Yessi tse Georgette Address [address] [place] [address] Care Team Providers Care Small Arms Repairer Name Role Phone Unavailable Primary Care Provider Unavailabl e Allergies No known active allergies Medications losartan (COZAAR) 100 mg tablet Take 100 mg by mouth daily. Active calcium citrate-vitamin d3 (CITRACAL D MAX) 315 mg-6.25 mcg (250 unit) Tablet Take by mouth daily. Active FLUoxetine (PROzac) 10 mg tablet 10 MG ORALLY DAILY 02/01/2023 Active predniSONE (DELTASONE) 5 mg tablet Take 5 mg by mouth daily. Active multivitamin (DAILY-SHARIFA) tablet Take 1 Tablet by mouth daily. Active apixaban (Eliquis) 5 mg tablet Take 1 Tablet (5 mg) by mouth 2 times daily. 180 Tablet 2 06/18/2023 Active folic acid (FOLVITE) 1 mg tablet Take 1 mg by mouth daily. Active Active Problems No known active problems Encounters Date Type Department Care Team Description 04/24/2024 11:30 AM FLANGER Office Visit [facility] Oncology and Hematology [address] [place] [address] Walter Marino MD Acute deep vein thrombosis (DVT) of distal vein of right lower extremity (CMS/HCC) (Primary Dx) 04/23/2024 External Device Data STL ABSTRACTION Provider, Abstract 04/23/2024 Telephone [facility] Hematology [facility] [address] [place] [address] Walter Marino MD labs for appt 04/09/2024 External Device Data STL ABSTRACTION Provider, Abstract 03/13/2024 External Device Data STL ABSTRACTION Provider, Abstract 03/04/2024 External Device Data STL ABSTRACTION Provider, Abstract from Last 3 Months Family History Medical History Relation Name Comments Cancer Daughter Heart Disease Father Prostate Cancer Father Relation Name Status Comments Brother 1 Alive Brother 2 Daughter Father Mother Alive Son 1 Alive Son 2 Alive Social History Tobacco Use Types Packs/Day Years Used Date Smoking Tobacco: Never Smokeless Tobacco: Never Tobacco Cessation:Counseling Given: Not Answered Alcohol Use Standard Drinks/Week Comments Yes 0 (1 standard drink = 0.6 oz pur e alcohol) Comments Unknown Sex and Gender Information Value Date Recorded Sex Assigned at Not on file Legal Sex Female 8:24 AM CDT Gender Identity Not on file Sexual Orientation Not on file Last Filed Vital Signs Vital Sign Reading Time Taken Comments Blood Pressure 119/81 04/24/2024 11:29 AM FLANGER Pulse 89 04/24/2024 11:29 AM FLANGER Temperature 36.3 C (97.4 F) 04/24/2024 11:29 AM FLANGER Respiratory Rate 16 04/24/2024 11:2 9 AM FLANGER Oxygen Saturation 98% 04/24/2024 11: 29 AM FLANGER Inhaled Oxygen Concentration - - Weight 84.7 kg (186 lb 12.8 oz) 025 11:29 AM FLANGER Height 165.1 cm (5' 5 ) 11/09/2022 10:1 6 AM CDT Body Mass Index 31.09 11/09/2022 10:16 AM CDT Plan of Treatment Upcoming Encounters Date Type Department Care Team (Late st Contact Info) Description 11/04/2024 11:30 AM CDT Office Visit [facility] Oncology and Hematology - [place] [address] [facility] [address] [place] [address] Walter Marino MD [address] [facility] [address] [place] [address] Health Maintenance Due Date Last Done Comments Pre-Diabetes and Diabetes Screening 1968 DTAP/TDAP/TD VACCINES (1 - Tdap) 01/20/1987 HEPATITIS B VACCINES (1 of 3 - 19+ 3-dose series) 03/1986 CERVICAL CANCER SCREENING 01/20/1998 BREAST CANCER SCREENING 2008 COLORECTAL SCREENING 01/20/2013 Colorectal Cancer Screening 01/20/2013 FIT-DNA Q 3 years 01/20/2013 FIT/FOBT Q 1 year 01/20/2013 Flex Sig/CT Colonography Q 5 years 01/20/2013 ZOSTER VACCINE (1 of 2) 01/20/2018 INFLUENZA VACCINE (#1) 2023 Preventative Visit- Commercial 02/20/2024 Insurance [employer] CHOICE POS II
--- OUTSIDE RECORDS SUMMARY | 2024-04-24 12:46 | XMS_ITS | Encounter Summary ---
Author Organization [facility] Address [address] [place] [address] Care Team Providers Care Marketing Communications Coordinator Name Role Phone Unavailable Primary Care Provider Unavailabl e Encounter Details Date Type Department Care Team (Late st Contact Info) Description 04/23/2024 External Device Data ST[place] ABSTRACTION Provider, Abstract NO ADDRESS ON FILE Social History Tobacco Use Types Packs/Day Years Used Date Smoking Tobacco: Never Smokeless Tobacco: Never Alcohol Use Standard Drinks/Week Comments Yes 0 (1 standard drink = 0.6 oz pur e alcohol) Comments Unknown Sex and Gender Information Value Date Recorded Sex Assigned at Not on file Legal Sex Female 8:24 AM CDT Gender Identity Not on file Sexual Orientation Not on file documented as of this encounter Plan of Treatment Upcoming Encounters Date Type Department Care Team (Late st Contact Info) Description 11/04/2024 11:30 AM CDT Office Visit [facility] Oncology and Hematology - [place] [address] [facility] [address] [place] [address] Walter Marino MD [address] [facility] [address] [place] [address] documented as of this encounter Visit Diagnoses Not on filedocumented in this encounter
--- OUTSIDE RECORDS SUMMARY | 2024-04-24 12:46 | XMS_ITS | Encounter Summary ---
Author Organization [facility] Address [address] [place] [address] Care Team Providers Care Artificial Insemination Technician Name Role Phone Unavailable Primary Care Provider Unavailabl e Reason for Visit * Reason Onset Date Comments labs for appt 04/23/2024 Encounter Details Date Type Department Care Team (Late st Contact Info) Description 04/23/2024 Telephone [facility] Oncology and Hematology - [place] [address] [place] [address] [facility] [address] [place] [address] Walter Marino MD [address] [facility] [address] [place] [address] labs for appt Social History Tobacco Use Types Packs/Day Years [...] on file documented as of this encounter Miscellaneous Notes * Telephone Encounter - Ernestine Vasquez - 04/23/2024 10:31 AM CST LVM for patient about her labs for her appointment tomorrow. ING TUB OPERATOR documented in this encounter Plan of Treatment Upcoming Encounters Date Type Department Care Team (Late Contact Info) Description 11/04/2024 11:30 AM CDT Office Visit [facility] Oncology and Hematology - [place] [address] [facility] [address] [place] [address] Walter Marino MD [address] [facility] [address] [place] [address] documented as of this encounter Visit Diagnoses Not on filedocumented in this encounter
--- OUTSIDE RECORDS SUMMARY | 2024-04-24 12:46 | XMS_ITS | Encounter Summary ---
Author Organization [facility] Address [address] [place] [address] Care Team Providers Care Vp Ad Products And Planning Name Role Phone Unavailable Primary Care Provider Unavailabl e Reason for Visit * Reason Comments Follow Up Encounter Details Date Type Department Care Team (Late st Contact Info) Description 04/24/2024 11:30 AM TECHNOLOGY RECRUITER Office Visit [facility] Oncology and Hematology - [place] [address] [facility] [address] [place] [address] Walter Marino MD [address] [facility] [address] [place] [address] Acute deep vein thrombosis (DVT) of distal vein of right lower extremity (CMS/HCC) (Primary Dx) Social History Tobacco Use Types Packs/Day Years [...] on file documented as of this encounter Last Filed Vital Signs Vital Sign Reading Time Taken Comments Blood Pressure 119/81 04/24/2024 11:29 AM TECHNOLOGY RECRUITER Pulse 89 04/24/2024 11:29 AM TECHNOLOGY RECRUITER Temperature 36.3 C (97.4 F) 04/24/2024 11:29 AM TECHNOLOGY RECRUITER Respiratory Rate 16 04/24/2024 11:2 9 AM TECHNOLOGY RECRUITER Oxygen Saturation 98% 04/24/2024 11: 29 AM TECHNOLOGY RECRUITER Inhaled Oxygen Concentration - - Weight 84.7 kg (186 lb 12.8 oz) 025 11:29 AM TECHNOLOGY RECRUITER Height - - Body Mass Index 31.09 11/09/2022 10:16 AM CDT documented in this encounter Progress Notes * Walter Marino MD - 04/24/2024 11:32 AM CST HEMATOLOGY / ONCOLOGY PROGRESS NOTE Patient Identification: Name: Clemencia Verdugo Age: 54 y.o. Sex: female : 1970 DIAGNOSIS Hypercoagulable state CURRENT TREATMENT Eliquis 5 mg twice daily since August 2022 TREATMENT HISTORY SUBJECTIVE Patient came into the office for follow-up visit. She is taking Eliquis and tolerating it well. Denies any chest pain and shortness of breath. No bleeding and bruising. She has some discomfort in theright back of the knee. No other new complaints. Review of system Constitutional: Patient did not mention fevers, sweats, weight and appetite stable, denies any tiredness and fatigue HEENT: Patient did not mention sinus congestion, hearing or vision problems Respiratory: Patient did not mention cough, dyspnea, wheeze Cardiovascular: Patient did not mention chest pain, exertional chest pressure/discomfort, nausea, syncope, shortness of breath GI: Patient did not mention constipation, diarrhea, dsyphagia, reflux symptoms, vomiting, melena : Patient did not mention dysuria, frequency, incontinence, urgency Integumentary system: no lymphadenopathy, sweats, flushing Musculoskeletal: Patient not mention: myalgia, arthralgia Neurological: Patient did not mention blurry or disturbed vision, numbness/weakness, dizziness Skin: No lumps, bumps or rashes. 12 point review of system was reviewed Objective: Vital signs in last 24 hours: As per nursing note Exam: General appearance: alert, cooperative, no distress, appears stated age Head: normocephalic, without obvious abnormality, atraumatic Eyes: conjunctivae/corneas clear, EOM's intact Ears: normal external ear canals AU Nose: Nares normal. Septum midline. Mucosa normal. No drainage or sinus tenderness Throat: Lips, mucosa, and tongue normal. Teeth and gums normal Neck: supple, symmetrical, trachea midline. Lungs: clear to auscultation bilaterally Heart: regular rate and rhythm, S1, S2 normal, no murmur, click, rub or gallop Abdomen: soft, non-tender. Bowel sounds normal. No masses, No organomegaly Extremities: extremities normal, atraumatic, there is no swelling and edema on the right leg examination. Skin: Skin color, texture, turgor normal. No rashes or lesions Lymph nodes: No lymphadenopathy Neuro: No obvious focal deficit M as above PATH LABS Labs from December 05 showed D-dimer of 0.34 Labs from April 17 showed homocystine 8.9 hemoglobin 13.6 @IMAGEIMP@ Assessment: Plan: There are no active problems to display for this patient. Unprovoked extensive right lower extremity DVT and bilateral PE diagnosed September 18, 2022. Incompletehypercoagulable work-up done in the hospital showed MTHFR homozygous state and lupus anticoagulant weakly positive. She has been on Eliquis 5 mg twice daily. Right lower extremity Doppler study done on March 14 showed DVT involving the left popliteal veinpossibly chronic. Right lower extremity Doppler study done on June 10 showed chronic DVT of the right popliteal vein. Doppler studies done on October 18, 2023 showed chronic DVT of the right popliteal vein. There no evidence of blood clot on my examination. Labs showed normal homocystine level of 8.9. Patient will continue Eliquis 5 mg twice a day along with folic acid 0.4 mcg daily. I will see her backin 6 months with repeat blood test. She will come back to us on as-needed basis. Imaging studies will be done on as-needed basis. I have recommended regular exercise and weight loss. Hypertension. Stable on losartan. Follow-up in 6 months. 04/24/2024 Walter Marino MD NOLOGY RECRUITER documented in this encounter Plan of Treatment Upcoming Encounters Date Type Department Care Team (Late st Contact Info) Description 11/04/2024 11:30 AM CDT Office Visit [facility] Oncology and Hematology - [place] [address] [facility] [address] [place] [address] Walter Marino MD [address] [facility] [address] [place] [address] Scheduled Orders Name Type Priority Associated Diagnoses Orde r Schedule CBC WITHOUT DIFFERENTIAL Lab Stat Acute deep vein thrombosis (DVT) of distal vein of right lower extremity (CMS/HCC) Expected: 10/25/2024, Expires: 04/24/2025 VITAMIN B12 AND FOLATE Lab Routine Acute deep vein thrombosis (DVT) of distal vein of right lower extremity (CMS/HCC) Expected: 10/25/2024, Expires: 04/24/2025 HOMOCYSTEINE Lab Routine Acute deep vein thrombosis (DVT) of distal vein of right lower extremity (CMS/HCC) Expected: 10/25/2024, Expires: 04/24/2025 documented as of this encounter Visit Diagnoses Diagnosis Acute deep vein thrombosis (DVT) of distal vein of right lower extremity (CMS/HCC)- Primary documented in this encounter
[2024-04-24 13:28] LABS: Folic Acid > 20.0 ng/mL (2.76->20)
[2024-04-28 16:59] LABS: Homocysteine 8.7 umol/L (<10.4)
== END 2024-04-24 11:06 | disposition home or self-care (01) ==
LOC: ANHLAB 11:06
PROVIDERS: PCP Nurse Practitioner Adult Health; Visit Provider Internal Medicine Hematology & Oncology
DX: I82.4Z1 Acute embolism and thrombosis of unspecified deep veins of right distal lower extremity (principal)
CPT/HCPCS: 36415; 80047; 82607; 82746; 83090; 85025

== ENCOUNTER 2024-10-27 17:24 | Outpatient (CLI) | payer OTHER, SELFPAY ==
[2024-10-27 19:05] LABS: Vitamin B12 717.0 pg/mL (239-931)
== END 2024-10-27 17:25 | disposition home or self-care (01) ==
LOC: CHSLAB 17:28
PROVIDERS: PCP Nurse Practitioner Adult Health; Visit Provider Internal Medicine Hematology & Oncology
DX: I82.4Z1 Acute embolism and thrombosis of unspecified deep veins of right distal lower extremity (principal)
CPT/HCPCS: 36415; 82607; 82746; 83090

== ENCOUNTER 2024-10-30 08:35 | Outpatient (CLI) | payer OTHER, SELFPAY ==
--- NOTE | ~2024-10-30 | XR_ITS ---
EXAMINATION: XR hip RT min 2V, 10/30/2024 8:42 CDT HISTORY: Pain right hip, no known injury COMPARISON: No comparisons available. Findings: No acute fracture or malalignment. No significant degenerative changes. Soft tissues unremarkable. Impression: No acute fracture or malalignment. Reviewed, dictated and finalized at location A. Impression: No acute fracture or malalignment.
--- OUTSIDE RECORDS SUMMARY | 2024-10-30 09:02 | XMS_ITS | Clinical Summary ---
Author Organization [facility] [place] Address [address] [place] [address] Care Team Providers Care Reclamation Engineer Name Role Phone Unavailable Primary Care Provider [...] Take 1 Tablet by mouth daily. Active folic acid (FOLVITE) 1 mg tablet Take 1 mg by mouth daily. Active apixaban (Eliquis) 5 mg tablet TAKE 1 TABLET BY MOUTH TWICE A DAY 180 Tablet 3 07/23/2024 Active Active Problems No known active problems Encounters Date Type Department Care Team Description 10/29/2024 Orders Only [facility] Oncology and Hematology - [place] [address] [place] [phone] Walter Marino MD 10/28/2024 Orders Only [facility] Oncology and Hematology - [place] [address] [place] [address] Walter Marino MD 09/23/2024 External Device Data STL ABSTRACTION Provider, Abstract 09/03/2024 External Device Data STL ABSTRACTION Provider, Abstract 09/03/2024 External Device Data STL ABSTRACTION Provider, Abstract 08/05/2024 External Device Data STL ABSTRACTION Provider, Abstract [...] Sex Female 8:24 AM CDT Gender Identity Female 10/28/2024 1:24 PM CDT Sexual Orientation Not on file Last Filed Vital Signs Vital Sign Reading Time Taken Comments Blood Pressure 119/81 04/24/2024 11:29 AM REHABILITATION PHYSICIAN Pulse 89 04/24/2024 11:29 AM REHABILITATION PHYSICIAN Temperature 36.3 C (97.4 F) 04/24/2024 11:29 AM REHABILITATION PHYSICIAN Respiratory Rate 16 04/24/2024 11:2 9 AM REHABILITATION PHYSICIAN Oxygen Saturation 98% 04/24/2024 11: 29 AM REHABILITATION PHYSICIAN Inhaled Oxygen Concentration - - Weight 84.7 kg (186 lb 12.8 oz) 025 11:29 AM REHABILITATION PHYSICIAN Height 165.1 cm (5' 5) 11/09/2022 10:1 6 AM CDT Body Mass Index 31.09 11/09/2022 10:16 AM CDT Plan of Treatment Upcoming Encounters Date Type Department Care Team (Late st Contact Info) Description 11/04/2024 11:30 AM CDT Office Visit [facility] Oncology and Hematology - [place] [address] [facility] [address] [place] [address] Walter Marino MD [address] [facility] [address] [place] [address] Health Maintenance Due Date Last Done Comments Pre-Diabetes and Diabetes Screening 1970 DTAP/TDAP/TD VACCINES (1 - Tdap) 01/20/1987 HEPATITIS B VACCINES (1 of 3 - 19+ 3-dose series) 03/1986 HPV/Cotest (21-29) 01/20/1989 CERVICAL CANCER SCREENING 01/20/1998 HPV/Cotest (30-65) 01/20/1998 PAP SMEAR 01/20/1998 BREAST CANCER SCREENING 2008 COLORECTAL SCREENING 01/20/2013 Colorectal Cancer Screening 01/20/2013 FIT-DNA Q 3 years 01/20/2013 FIT/FOBT Q 1 year 01/20/2013 Flex Sig/CT Colonography Q 5 years 01/20/2013 ZOSTER VACCINE (1 of 2) 01/20/2018 INFLUENZA VACCINE (#1) 2024 Procedures Procedure Name Priority Date/Time Associated Diagnosis Comments VITAMIN B12 LEVEL Routine 10/27/2024 3:23 PM CDT HOMOCYSTEINE Routine 10/27/2024 10:58 AM CDT from Last 3 Months Results * VITAMIN B12 LEVEL (10/27/2024 3:23 PM CDT) Blood Walter Marino MD CHEMISTRY ORDERABLES Final Resu lt * HOMOCYSTEINE (10/27/2024 10:58 AM CDT) Blood us Walter Marino MD CHEMISTRY ORDERABLES Final Resu lt from Last 3 Months Insurance [employer] CHOICE POS II
--- OUTSIDE RECORDS SUMMARY | 2024-10-30 09:02 | XMS_ITS | Encounter Summary ---
Author Organization [facility] [employer] [facility] Address [address] [place] [address] Care Team Providers Care Social Organization Professor Name Role Phone Unavailable Primary Care Provider Unavailabl e Encounter Details Date Type Department Care Team (Late Contact Info) Description 10/28/2024 Orders Only [facility] Oncology and Hematology [place] [address] [address] [place] [address] Walter Marino MD [facility] [address] [place] [address] Social History Tobacco Use Types Packs/Day Years [...] PM CDT Sexual Orientation Not on file documented as of this encounter Plan of Treatment Upcoming Encounters Date Type Department Care Team (Late Contact Info) Description 11/04/2024 11:30 AM CDT Office Visit [facility] Oncology and Hematology [place] [address] [place] [address] Walter Marino MD [address] [place] [address] documented as of this encounter Procedures Procedure Name Priority Date/Time Associated Diagnosis Comments VITAMIN B12 LEVEL Routine 10/27/2024 3:23 PM CDT documented in this encounter Results * VITAMIN B12 LEVEL (10/27/2024 3:23 PM CDT) Blood Walter Marino MD CHEMISTRY ORDERABLES Final Resu lt documented in this encounter Visit Diagnoses Not on filedocumented in this encounter
--- OUTSIDE RECORDS SUMMARY | 2024-10-30 09:02 | XMS_ITS | Encounter Summary ---
Author Organization [facility] [employer] [facility] Address [address] [place] [address] Care Team Providers Care Alarm Technician Name Role Phone Unavailable Primary Care Provider Unavailabl e Encounter Details Date Type Department Care Team (Late Contact Info) Description 10/29/2024 Orders Only [facility] Oncology and Hematology [place] [address] [address] [place] [address] Walter Marino MD [facility] [address] [place] [address] Social History Tobacco Use Types Packs/Day [...] Oncology and Hematology [place] [address] [place] [address] Walter Marino MD [address] [place] [address] documented as of this encounter Procedures Procedure Name Priority Date/Time Associated Diagnosis Comments HOMOCYSTEINE Routine 10/27/2024 10:58 AM CDT documented in this encounter Results * HOMOCYSTEINE (10/27/2024 10:58 AM CDT) Blood Walter Marino MD CHEMISTRY ORDERABLES Final Resu lt documented in this encounter Visit Diagnoses Not on filedocumented in this encounter
[2024-10-30 19:20] LABS: Hematocrit 44.5 % (37.0-47.0); Hemoglobin 14.0 g/dL (12.0-15.0); Immature Granulocyte Percent A 3.3 % (0-0.5); Lymphocytes Absolute Auto 2.34 K/mm3 (0.9-3.2); Mean Corpuscular HGB Conc 31.5 g/dl (32-36); Mean Corpuscular Hemoglobin 30.4 pg (26-34); Mean Corpuscular Volume 96.5 fl (80-100); Nucleated Red Blood Cells Absolute Auto 0.000 K/mm3 (0.0-0.012); Nucleated Red Blood Cells Perc 0.0 % (0.0-0.2); Platelet Count Result 195 k/mm3 (150-375); Red Blood Count 4.61 M/mm3 (4.2-5.4); White Blood Count 6.0 K/mm3 (4.5-10.0)
[2024-10-30 19:34] LABS: Alanine Aminotransferase 43 U/L (6-35); Albumin Level 4.7 g/dL (3.5-5.1); Alkaline Phosphatase 50 U/L (38-126); Anion Gap 8 mmol/L (4-12); Aspartate Amino Transferase 49 U/L (14-36); Bilirubin,Total 0.6 mg/dL (0.2-1.3); Blood Urea Nitrogen 18 mg/dL (7-17); Calcium 9.9 mg/dL (8.4-10.2); Carbon Dioxide 27 mmol/L (22-30); Chloride 103 mmol/L (98-107); Cholesterol 249 mg/dL (0-200); Estimated Glomerular Filt Rate > 60; Glucose 97 mg/dL (65-110); HDL Direct 45 mg/dL; Magnesium 2.3 mg/dL (1.6-2.3); Potassium 4.5 mmol/L (3.4-5.0); Sodium 138 mmol/L (137-145); Total Protein 7.8 g/dL (6.3-8.2); Triglycerides 235 mg/dL (<150)
[2024-10-30 20:34] LABS: Thyroid Stimulating Hormone Reflex 1.450 uIU/mL (0.465-4.68)
== END 2024-10-30 08:36 | disposition home or self-care (01) ==
LOC: ANHBWCLAB 08:37
PROVIDERS: PCP Nurse Practitioner Adult Health; Visit Provider Nurse Practitioner Adult Health
DX: M25.551 Pain in right hip (principal); I10 Essential (primary) hypertension
CPT/HCPCS: 36415; 73502; 80053; 80061; 83735; 84443; 85025

== ENCOUNTER 2025-01-05 12:59 | Outpatient (CLI) | payer OTHER, SELFPAY ==
--- NOTE | ~2025-01-05 | MM_ITS ---
EXAMINATION: MM screening ashvin BI w ashli HISTORY: Screening TECHNIQUE: Craniocaudal and mediolateral oblique 3-D tomosynthesis images were obtained and synthetic 2-D images were generated. CAD analysis was submitted and interpreted. COMPARISON: Comparison to multiple prior studies sequentially, with oldest reviewed study dated , 09/17/2019 BREAST PARENCHYMAL COMPOSITION: The breasts are almost entirely fatty. FINDINGS: There is no evidence of suspicious mass, calcification, or architectural distortion to suggest malignancy in either breast. IMPRESSION: 1. No mammographic evidence of malignancy. 2. Recommend routine screening mammography in one year. BI-RADS Category 1: Negative Reviewed, dictated and finalized at location B. LER
--- NOTE | ~2025-01-05 | DEXA_ITS ---
Bone Density Report Name: CLYDE DEL CID Age: 54 Sex: Female Ethnicity: White Date of : 1970 Indication: postmenopausal; screening for osteoporosis; height loss; Referring Provider: ZACHARY MCCARTHY Study: Bone densitometry was performed. Exam Date: January 05, 2025 Accession number: [id number] Bone Density: Region BMD T-score Z-score Classification AP Spine(L1-L4) 1.088 0.4 1.6 Normal Femoral Neck (Right) 0.882 0.3 1.4 Normal Total Hip (Right) 1.011 0.6 1.3 Normal World Health Organization criteria for BMD impression classify patients as: Normal (T-score at or above -1.0), Osteopenia (T-score between -1.0 and -2.5), or Osteoporosis (T-score at or below -2.5). 10-year Fracture Risk: FRAX not reported because: All T-scores for Spine Total, Hip Total, Femoral Neck at or above -1.0 Clinical Information Provided by Patient: Has used the following medications: Vitamin D, Calcium, multivitamin Patient maximum height was 66 Menopause Age: 53 No regular weight bearing exercise Does not regularly consume dairy products Drinks caffeinated beverages Onset of menses at age 10 Number of children 3 Impression: The patient has normal bone mass. Discussion: BONE DENSITY IS ABOVE THE MINIMUM DESIRABLE LEVEL AT ALL SKELETAL SITES TESTED. This patient?s bone mineral density is above the minimum desirable level (T-score -1.0 or better) at all sites measured. The patient should follow a healthful lifestyle (good nutrition with adequate calcium and vitamin D, and appropriate weight-bearing exercise). Follow-Up: Consider repeating this study in 5 years or sooner if there is some new clinical indication. Reported by: AMANDA on 01/06/2025 8:21:00 AM. Reviewed, dictated and finalized at location A.
== END 2025-01-05 13:00 | disposition home or self-care (01) ==
LOC: CHSIMG 13:01
PROVIDERS: PCP Nurse Practitioner Adult Health; Visit Provider Obstetrics & Gynecology
DX: Z12.31 Encounter for screening mammogram for malignant neoplasm of breast (principal); Z78.0 Asymptomatic menopausal state
CPT/HCPCS: 77063; 77067; 77080